=== PATIENT | female | born 1950 | race Two or more races ===

== ENCOUNTER 2016-08-22 09:37 | Inpatient (IN) | payer MEDICARE, OTHER ==
[~2016-08-22] VITALS: Ht 160 cm; Wt 79.5 kg
[2016-08-22 11:59] LABS: Basophils # (auto) 0 uL; Basophils % (auto) 0.1 % (0.0-2.0); Eosinophils # (auto) 0 uL; Eosinophils % (auto) 0.2 % (0.0-7.0); Hematocrit 44.9 % (36.0-46.0); Hemoglobin 14.4 g/dL (12.2-16.2); Lymphocytes # (auto) 1.1 uL; Lymphocytes % (auto) 7.2 % (10.0-50.0); Mean Corpuscular Hgb Conc. 32.2 g/dL (32.0-36.0); Mean Corpuscular Volume 87.1 fL (80.0-100.0); Mean Platelet Volume 7.9 fL (7.4-10.4); Monocytes # (auto) 0.4 uL; Monocytes % (auto) 2.3 % (0.0-12.0); Neutrophils # (auto) 14.1 uL; Neutrophils % (auto) 90.2 % (37.0-80.0); Platelet Count (auto) 297 10^3/uL (140-450); Red Cell Distribution Width 14.5 % (11.6-16.0); SUSPECT VIEW TRANSMISSION; White Blood Cell 15.7 10^3/uL (4.4-10.8)
[2016-08-22 12:19] LABS: BUN/Creatinine Ratio 16.7; Calcium 8.4 mg/dL (8.5-10.1)
[2016-08-22 14:48] LABS: Potassium 3.7 mmol/L (3.5-5.1)
[2016-08-22] MEDS ORDERED: metroNIDAZOLE 500MG/100ML 100 ML IV ONE (16:30)
[2016-08-22] MEDS ORDERED: ONDANSETRON HCL 4 MG/2 ML VIAL IV ONE (16:30)
[2016-08-22] MEDS ORDERED: SODIUM CHLORIDE 0.9% 1,000 ML IV ONE (16:30)
[2016-08-22] MEDS ORDERED: MORPHINE SULFATE 4 MG/ML SYRG IV ONE (16:30)
[2016-08-22] MEDS ORDERED: PANTOPRAZOLE SODIUM 40 MG/10 ML VIAL IV ONE (16:30)
[2016-08-22] MEDS: PIPERACILLIN-TAZOB 3.375GM 100 ML IV ONE ×2 (16:44→18:40)
[2016-08-22] MEDS: SODIUM CHLORIDE 0.9% 1,000 ML IV ONE ×2 (16:44→19:00)
[2016-08-22 16:56] LABS: BUN/Creatinine Ratio 17.4; Bilirubin, Total 1.6 mg/dL (0.2-1.0); Calcium 8.4 mg/dL (8.5-10.1); Total Protein 7.4 g/dL (6.4-8.2)
[2016-08-22 17:41] LABS: Albumin 2.5 g/dL (3.4-5.0)
[2016-08-22] MEDS ORDERED: cefTRIAXone 1GM/50ML D5W 50 ML IV ONE (18:00)
[2016-08-22] MEDS ORDERED: IOHEXOL 350 MG/ML 100ML IJ ONE (18:13)
[2016-08-22 18:19] LABS: Amylase 44 U/L (25-115)
[2016-08-22 18:48] LABS: INR 1.03 (0.9-1.15); Partial Thromboplastin Time 24.1 sec (22.64-33.71); Prothrombin Time 10.6 sec (9.37-12.3)
[2016-08-22 18:50] LABS: Urine Blood TRACE /uL (Negative); Urine Color Yellow (Yellow); Urine Glucose Normal (Normal); Urine Ketone TRACE (Negative); Urine Nitrite Negative (Negative); Urine RBC 20 /hpf (0 - 4); Urine Squamous Epithelial Cell FEW /hpf (<5)
[2016-08-22 18:55] LABS: Urine Bilirubin Negative (Negative)
[2016-08-22] MEDS ORDERED: DEXTROSE (50%) 50ML SYRG IV PRN (19:15)
[2016-08-22] MEDS ORDERED: LORazepam 2MG/ML-1ML VIAL IV PRN (19:15)
[2016-08-22] MEDS ORDERED: LEVOFLOXACIN 500MG 100 ML IV ONE (19:15)
[2016-08-22] MEDS ORDERED: NITROGLYCERIN 0.4 MG SL TAB SL PRN (19:15)
[2016-08-22] MEDS ORDERED: MORPHINE SULF INJ 2 MG/ML SYRINGE 1ML IV PRN (19:15)
[2016-08-22] MEDS ORDERED: PROMETHAZINE HCL 25 MG/ML 1ML IV PRN (19:15)
[2016-08-22] MEDS ORDERED: ALBUTEROL SULF 2.5 MG/0.5ML(0.5%) NEB SOLN NEB PRN (19:15)
[2016-08-22] MEDS ORDERED: PIPERACILLIN-TAZOB 3.375GM 100 ML IV ONE (19:15)
[2016-08-22] MEDS ORDERED: VANCOMYCIN PER PHARMACY 0 MG IV SCH (19:15)
[2016-08-22] MEDS ORDERED: VANCOMYCIN 1GM/250ML D5W 250 ML IV ONE (19:15)
[2016-08-22] MEDS ORDERED: ENOXAPARIN SOD 40 MG/0.4 ML SYRINGE SC SCH (19:15)
[2016-08-22] MEDS: SODIUM CHLORIDE 0.9% 1,000 ML IV SCH (20:00)
[2016-08-22] MEDS ORDERED: ENOXAPARIN SOD 80 MG/0.8ML SYRINGE SC ONE (20:30)
[2016-08-22] MEDS: VANCOMYCIN 1GM/250ML D5W 250 ML IV SCH (21:54)
[2016-08-22] MEDS: MORPHINE SULF INJ 2 MG/ML SYRINGE 1ML IV PRN (22:07)
[2016-08-22] MEDS: metroNIDAZOLE 500MG/100ML 100 ML IV SCH (22:24)
[2016-08-22] MEDS: PIPERACILLIN-TAZOB 3.375GM 100 ML IV SCH (23:15)
[2016-08-23] MEDS: ALBUTEROL SULF 2.5 MG/0.5ML(0.5%) NEB SOLN NEB SCH ×4 (00:30→18:24)
[2016-08-23] MEDS ORDERED: InsuLIN REG 1unit/0.01ml Soln (100units/ml) ONE (01:01)
[2016-08-23 01:43] VITALS: BP 141/74
[2016-08-23] MEDS: SODIUM CHLORIDE 0.9% 1,000 ML IV SCH ×3 (03:10→19:00)
[2016-08-23] MEDS: metroNIDAZOLE 500MG/100ML 100 ML IV SCH ×4 (04:00→21:27)
[2016-08-23] MEDS: PIPERACILLIN-TAZOB 3.375GM 100 ML IV SCH ×4 (05:20→23:00)
[2016-08-23] MEDS: InsuLIN REG 1unit/0.01ml Soln (100units/ml) SC SCH ×4 (06:00→17:51)
[2016-08-23] MEDS: ACCU-CHEK COMFORT CURVE STRIP VI SCH ×4 (06:08→17:48)
[2016-08-23 07:54] LABS: DEFINITIVE VIEW TRANSMISSION; Hematocrit 40.5 % (36.0-46.0); Mean Corpuscular Hemoglobin 27.9 pg (28.0-32.0); Mean Corpuscular Hgb Conc. 32.1 g/dL (32.0-36.0); Mean Corpuscular Volume 86.9 fL (80.0-100.0); Mean Platelet Volume 8.1 fL (7.4-10.4); Platelet Count (auto) 304 10^3/uL (140-450); Red Cell Distribution Width 14.6 % (11.6-16.0); SUSPECT VIEW TRANSMISSION; White Blood Cell 24.8 10^3/uL (4.4-10.8)
[2016-08-23 07:56] LABS: Metamyelocytes % 0; Myelocytes % 0; Promyelocytes % 0; Reactive Lymphocytes 0
[2016-08-23] MEDS: VANCOMYCIN 1GM/250ML D5W 250 ML IV SCH ×2 (08:11→20:00)
[2016-08-23 08:18] LABS: Albumin 2.1 g/dL (3.4-5.0); BUN/Creatinine Ratio 13.4; Bilirubin, Total 1.2 mg/dL (0.2-1.0); Calcium 7.3 mg/dL (8.5-10.1); Potassium 3.4 mmol/L (3.5-5.1); Total Protein 6.7 g/dL (6.4-8.2)
[2016-08-23 08:37] LABS: Platelet Estimate Adequate
[2016-08-23] MEDS ORDERED: LEVOFLOXACIN 500MG 100 ML IV SCH (09:00)
[2016-08-23 15:50] LABS: Hematocrit 38.1 % (36.0-46.0); Hemoglobin 12.5 g/dL (12.2-16.2); Mean Corpuscular Hemoglobin 28.4 pg (28.0-32.0); Mean Corpuscular Hgb Conc. 32.7 g/dL (32.0-36.0); Mean Corpuscular Volume 86.7 fL (80.0-100.0); Mean Platelet Volume 7.8 fL (7.4-10.4); Platelet Count (auto) 299 10^3/uL (140-450); Red Cell Distribution Width 14.5 % (11.6-16.0); SUSPECT VIEW TRANSMISSION; White Blood Cell 26.1 10^3/uL (4.4-10.8)
[2016-08-23 15:55] LABS: Metamyelocytes % 0; Myelocytes % 0; Promyelocytes % 0; Reactive Lymphocytes 0
[2016-08-23 16:01] LABS: INR 1.11 (0.9-1.15); Partial Thromboplastin Time 30.6 sec (22.64-33.71); Prothrombin Time 11.4 sec (9.37-12.3)
[2016-08-23 16:05] VITALS: BP 145/82
[2016-08-23] MEDS ORDERED: POTASSIUM CHLORIDE 40 MEQ, LIDOCAINE 1% (LOCAL ANESTH.) 4 ML in SODIUM CHL 0.9% 250 ML IV ONE (16:30)
[2016-08-23 16:34] VITALS: BP 145/82
[2016-08-23 16:44] LABS: Platelet Estimate Adequate
[2016-08-23] MEDS ORDERED: AML5T PO (18:14)
[2016-08-23] MEDS ORDERED: SIMV-8 PO (18:14)
[2016-08-23] MEDS ORDERED: BECL0.07 IN (18:14)
[2016-08-23] MEDS ORDERED: ASPI-231 PO (18:14)
[2016-08-23] MEDS ORDERED: MORPHINE SULF INJ 2 MG/ML SYRINGE 1ML ONE (19:51)
[2016-08-23 20:00] VITALS: BP 148/72
[2016-08-23] MEDS: MORPHINE SULF INJ 2 MG/ML SYRINGE 1ML IV PRN (20:00)
[2016-08-24] VITALS (29 sets, daily range): BP systolic 85–171; BP diastolic 41–74
[2016-08-24] MEDS: ALBUTEROL SULF 2.5 MG/0.5ML(0.5%) NEB SOLN NEB SCH ×4 (00:02→18:54)
[2016-08-24] MEDS: ACCU-CHEK COMFORT CURVE STRIP VI SCH ×3 (00:02→18:00)
[2016-08-24] MEDS: SODIUM CHLORIDE 0.9% 1,000 ML IV SCH ×4 (01:51→23:12)
[2016-08-24] MEDS: metroNIDAZOLE 500MG/100ML 100 ML IV SCH ×3 (03:49→21:12)
[2016-08-24] MEDS: PIPERACILLIN-TAZOB 3.375GM 100 ML IV SCH ×3 (04:55→22:05)
[2016-08-24] MEDS: InsuLIN REG 1unit/0.01ml Soln (100units/ml) SC SCH ×3 (06:00→18:38)
[2016-08-24 06:21] LABS: Hematocrit 37.5 % (36.0-46.0); Hemoglobin 12.2 g/dL (12.2-16.2); Mean Corpuscular Hemoglobin 28.2 pg (28.0-32.0); Mean Corpuscular Hgb Conc. 32.6 g/dL (32.0-36.0); Mean Corpuscular Volume 86.6 fL (80.0-100.0); Mean Platelet Volume 7.9 fL (7.4-10.4); Platelet Count (auto) 297 10^3/uL (140-450); Red Cell Distribution Width 14.6 % (11.6-16.0); SUSPECT VIEW TRANSMISSION; White Blood Cell 27.9 10^3/uL (4.4-10.8)
[2016-08-24 06:32] LABS: INR 1.13 (0.9-1.15); Prothrombin Time 11.6 sec (9.37-12.3)
[2016-08-24 06:40] LABS: Metamyelocytes % 0; Myelocytes % 0; Promyelocytes % 0; Reactive Lymphocytes 0
[2016-08-24 06:45] LABS: BUN/Creatinine Ratio 15.4; Calcium 7.3 mg/dL (8.5-10.1); Magnesium 2.6 mg/dL (1.6-2.6); Potassium 3.4 mmol/L (3.5-5.1); Total Protein 6.1 g/dL (6.4-8.2)
[2016-08-24 07:00] LABS: Bilirubin, Total 1.1 mg/dL (0.2-1.0)
[2016-08-24] MEDS ORDERED: fentaNYL CITRATE 100 MCG/2 ML VL ONE ×2 (07:04→08:51)
[2016-08-24] MEDS ORDERED: diphenhdrAMINE HCL 50 MG/1 ML VL ONE (07:04)
[2016-08-24] MEDS ORDERED: SODIUM CHLORIDE LOCK 0 ML ONE (07:04)
[2016-08-24] MEDS ORDERED: MIDAZOLAM HCL 5 MG/ML-1ML VIAL ONE (07:04)
[2016-08-24] MEDS ORDERED: LIDOCAINE VISCOUS 2% 15ML UD ONE (07:04)
[2016-08-24] MEDS ORDERED: BUPIVACAINE W/ EPINEPH 0.25% INJ 50ML MDV ONE (07:21)
[2016-08-24] MEDS ORDERED: ceFAZolin 1GM VL ONE (07:21)
[2016-08-24] MEDS ORDERED: NEOMYCIN-BACITRACIN-POLYM 15GM TOP OINT TOP ONE (07:21)
[2016-08-24] MEDS ORDERED: BUPIVACAINE 0.25% INJ 50ML VIAL ONE (07:22)
[2016-08-24] MEDS ORDERED: VANCOMYCIN 1,250 MG in D5W 5% 250 ML IV SCH ×2 (08:00→20:00)
[2016-08-24] MEDS ORDERED: ceFAZolin 1GM/50ML D5W 50 ML IV ONE (08:11)
[2016-08-24] MEDS ORDERED: HYDROmorphone HCL 2 MG/ML VL ONE ×2 (08:51→10:58)
[2016-08-24] MEDS ORDERED: MIDAZOLAM HCL 1MG/1ML-2 ML VIAL ONE ×2 (08:51→11:04)
[2016-08-24] MEDS ORDERED: fentaNYL CITRATE 5 ML ONE (08:53)
[2016-08-24] MEDS ORDERED: ETOMIDATE (2MG/ML) 20ML VIAL IV ONE (08:53)
[2016-08-24] MEDS ORDERED: SUCCINYLCHOLINE CHLORIDE 20 MG/ML 10ML VIAL IV ONE (09:26)
[2016-08-24] MEDS ORDERED: PHENYLEPHRINE HCL 10 MG/ML VL IV ONE (09:26)
[2016-08-24 10:14] LABS: Platelet Estimate Adequate
[2016-08-24] MEDS ORDERED: NITROGLYCERIN 0.4 MG SL TAB SL PRN (11:30)
[2016-08-24] MEDS ORDERED: HYDROmorphone HCL 2 MG/ML VL IV PRN (11:30)
[2016-08-24] MEDS ORDERED: PROMETHAZINE HCL 25 MG/ML 1ML IV PRN (11:30)
[2016-08-24] MEDS ORDERED: MIDAZOLAM HCL 1MG/1ML-2 ML VIAL IV PRN (11:30)
[2016-08-24] MEDS ORDERED: ONDANSETRON HCL 4 MG/2 ML VIAL IV ONE (11:30)
[2016-08-24] MEDS ORDERED: LABETALOL HCL 5 MG/ML 4ML SYRINGE IV PRN (11:30)
[2016-08-24] MEDS ORDERED: ePHEDrine SULFATE 50 MG/ML AMP IV PRN (11:30)
[2016-08-24] MEDS ORDERED: ACCU-CHEK COMFORT CURVE STRIP VI ONE (11:30)
[2016-08-24] MEDS ORDERED: ALBUTEROL SULF 2.5 MG/0.5ML(0.5%) NEB SOLN NEB PRN (11:30)
[2016-08-24] MEDS ORDERED: VANCOMYCIN PER PHARMACY 0 MG IV SCH (11:30)
[2016-08-24] MEDS ORDERED: DEXTROSE (50%) 50ML SYRG IV PRN (11:30)
[2016-08-24] MEDS ORDERED: MORPHINE SULF INJ 2 MG/ML SYRINGE 1ML IV PRN ×2 (11:30)
[2016-08-24] MEDS ORDERED: LORazepam 2MG/ML-1ML VIAL IV PRN (11:30)
[2016-08-24] MEDS ORDERED: InsuLIN REG 1unit/0.01ml Soln (100units/ml) SC SCH (12:00)
[2016-08-24] MEDS ORDERED: ACCU-CHEK COMFORT CURVE STRIP VI SCH (12:00)
[2016-08-24] MEDS: MORPHINE SULF INJ 2 MG/ML SYRINGE 1ML IV PRN ×2 (12:55→21:14)
[2016-08-24] MEDS ORDERED: MIDAZOLAM HCL 1MG/1ML-2 ML VIAL IV ONE (13:00)
[2016-08-24] MEDS ORDERED: PROPOFOL 100 ML IV ONE (13:04)
[2016-08-24] MEDS: PROPOFOL 100 ML IV SCH (13:33)
[2016-08-24] MEDS ORDERED: TPN PER PHARMACY 0 ML IV SCH (14:00)
[2016-08-24] MEDS: VANCOMYCIN 1,250 MG in D5W 5% 250 ML IV SCH (14:11)
[2016-08-24] MEDS ORDERED: DEXTROSE (50%) 50ML SYRG IV SCH (15:15)
[2016-08-24] MEDS ORDERED: POTASSIUM CHL 20MEQ/100ML 100 ML IV ONE (17:00)
[2016-08-24] MEDS ORDERED: LIDOCAINE 1% HCL (LOCAL ANESTH.) INJ 20ML MDV ID ONE (18:30)
[2016-08-24] MEDS ORDERED: CLINIMIX PER PHARMACY IV NR ×5 (20:00)
[2016-08-24] MEDS: SODIUM CHLOR 0.9% PF (SALINE LOCK) 10ML VIAL IV SCH (22:05)
[2016-08-25] VITALS (75 sets, daily range): BP systolic 88–158; BP diastolic 43–73
[2016-08-25] MEDS: PROPOFOL 100 ML IV SCH ×3 (00:17→11:04)
[2016-08-25] MEDS: ALBUTEROL SULF 2.5 MG/0.5ML(0.5%) NEB SOLN NEB SCH ×4 (01:10→19:17)
[2016-08-25] MEDS: VANCOMYCIN 1,250 MG in D5W 5% 250 ML IV SCH ×2 (02:11→14:00)
[2016-08-25 04:04] LABS: DEFINITIVE VIEW TRANSMISSION; Hematocrit 33.9 % (36.0-46.0); Hemoglobin 10.9 g/dL (12.2-16.2); Mean Corpuscular Hemoglobin 28.4 pg (28.0-32.0); Mean Corpuscular Hgb Conc. 32.2 g/dL (32.0-36.0); Mean Platelet Volume 7.7 fL (7.4-10.4); Platelet Count (auto) 305 10^3/uL (140-450); Red Cell Distribution Width 15.1 % (11.6-16.0); SUSPECT VIEW TRANSMISSION
[2016-08-25] MEDS: metroNIDAZOLE 500MG/100ML 100 ML IV SCH ×4 (04:10→21:45)
[2016-08-25] MEDS: PIPERACILLIN-TAZOB 3.375GM 100 ML IV SCH ×2 (04:11→11:03)
[2016-08-25 04:46] LABS: Albumin 1.4 g/dL (3.4-5.0); BUN/Creatinine Ratio 7.8; Bilirubin, Total 1.2 mg/dL (0.2-1.0); Magnesium 2.2 mg/dL (1.6-2.6); Phosphorus 3.9 mg/dL (2.6-4.90); Total Protein 4.5 g/dL (6.4-8.2)
[2016-08-25 04:49] LABS: Promyelocytes % 0; Reactive Lymphocytes 0
[2016-08-25 05:02] LABS: Calcium 5.9 mg/dL (8.5-10.1)
[2016-08-25] MEDS: InsuLIN REG 1unit/0.01ml Soln (100units/ml) SC SCH ×5 (05:51→23:47)
[2016-08-25] MEDS: ACCU-CHEK COMFORT CURVE STRIP VI SCH ×5 (05:54→23:45)
[2016-08-25 06:20] LABS: Metamyelocytes % 3; Myelocytes % 1
[2016-08-25 06:22] LABS: Anisocytosis Slight; Platelet Estimate Adequate
[2016-08-25] MEDS: SODIUM CHLORIDE 0.9% 1,000 ML IV SCH ×2 (07:30→18:17)
[2016-08-25] MEDS: SODIUM CHLOR 0.9% PF (SALINE LOCK) 10ML VIAL IV SCH ×2 (09:35→21:45)
[2016-08-25] MEDS ORDERED: CALCIUM GLUC 4.65 MEQ/10ML 4.65 MEQ in NS 0.9% 50 ML IV ONE (10:00)
[2016-08-25] MEDS ORDERED: MIDAZOLAM DRIP 100 mg/100mL NS 100 ML IV SCH (12:00)
[2016-08-25 13:15] LABS: DEFINITIVE VIEW TRANSMISSION; SUSPECT VIEW TRANSMISSION
[2016-08-25 13:17] LABS: Mean Platelet Volume 7.7 fL (7.4-10.4)
[2016-08-25 13:19] LABS: Hematocrit 33.4 % (36.0-46.0); Hemoglobin 10.7 g/dL (12.2-16.2); Mean Corpuscular Hemoglobin 28.3 pg (28.0-32.0); Mean Corpuscular Hgb Conc. 32.2 g/dL (32.0-36.0); Mean Corpuscular Volume 87.9 fL (80.0-100.0); Platelet Count (auto) 288 10^3/uL (140-450); Red Cell Distribution Width 14.8 % (11.6-16.0)
[2016-08-25 13:48] LABS: Albumin 1.3 g/dL (3.4-5.0); BUN/Creatinine Ratio 8.1; Calcium 6.7 mg/dL (8.5-10.1); Potassium 3.9 mmol/L (3.5-5.1); Total Protein 4.7 g/dL (6.4-8.2)
[2016-08-25] MEDS ORDERED: cefTAZidime 2 GM in D5W 5% 100 ML IV SCH (14:00)
[2016-08-25 14:17] LABS: White Blood Cell 37.7 10^3/uL (4.4-10.8)
[2016-08-25 14:18] LABS: Promyelocytes % 0; Reactive Lymphocytes 0
[2016-08-25] MEDS: HYDROmorphone HCL 2 MG/ML VL IV PRN ×2 (16:57→21:45)
[2016-08-25 18:34] LABS: Metamyelocytes % 4; Myelocytes % 3
[2016-08-25 18:35] LABS: Platelet Estimate Adequate
[2016-08-25 18:36] LABS: Anisocytosis Slight; Burr Cells MODERATE
[2016-08-25] MEDS ORDERED: TPN PER PHARMACY IV NR ×8 (20:00)
[2016-08-25] MEDS ORDERED: LINEZOLID 600MG/300ML 300 ML IV SCH (22:00)
[2016-08-26] VITALS (105 sets, daily range): BP systolic 122–173; BP diastolic 50–88
[2016-08-26] MEDS: ALBUTEROL SULF 2.5 MG/0.5ML(0.5%) NEB SOLN NEB SCH ×4 (00:36→18:16)
[2016-08-26] MEDS: HYDROmorphone HCL 2 MG/ML VL IV PRN ×4 (02:42→19:50)
[2016-08-26] MEDS: metroNIDAZOLE 500MG/100ML 100 ML IV SCH ×4 (03:45→21:59)
[2016-08-26 05:21] LABS: Albumin 1.3 g/dL (3.4-5.0); BUN/Creatinine Ratio 8.1; Bilirubin, Total 1.1 mg/dL (0.2-1.0); Calcium 6.4 mg/dL (8.5-10.1); Magnesium 2.3 mg/dL (1.6-2.6); Phosphorus 4.6 mg/dL (2.6-4.90); Potassium 3.8 mmol/L (3.5-5.1); Total Protein 4.9 g/dL (6.4-8.2)
[2016-08-26 05:51] LABS: DEFINITIVE VIEW TRANSMISSION; Hematocrit 30.5 % (36.0-46.0); Hemoglobin 9.9 g/dL (12.2-16.2); Mean Corpuscular Hemoglobin 28.4 pg (28.0-32.0); Mean Corpuscular Hgb Conc. 32.3 g/dL (32.0-36.0); Mean Corpuscular Volume 87.9 fL (80.0-100.0); Mean Platelet Volume 7.9 fL (7.4-10.4); Platelet Count (auto) 290 10^3/uL (140-450); SUSPECT VIEW TRANSMISSION
[2016-08-26 05:54] LABS: White Blood Cell 38.5 10^3/uL (4.4-10.8)
[2016-08-26 05:55] LABS: Myelocytes % 0; Promyelocytes % 0; Reactive Lymphocytes 0
[2016-08-26] MEDS: ACCU-CHEK COMFORT CURVE STRIP VI SCH ×3 (06:02→18:05)
[2016-08-26] MEDS: InsuLIN REG 1unit/0.01ml Soln (100units/ml) SC SCH ×3 (06:18→18:00)
[2016-08-26 06:38] LABS: Metamyelocytes % 1
[2016-08-26 06:39] LABS: Anisocytosis Slight; Platelet Estimate Adequate
[2016-08-26 06:40] LABS: Burr Cells MODERATE
[2016-08-26] MEDS: SODIUM CHLORIDE 0.9% 1,000 ML IV SCH ×2 (10:00→16:28)
[2016-08-26] MEDS: cefTAZidime 2 GM in D5W 5% 100 ML IV SCH (10:20)
[2016-08-26] MEDS: SODIUM CHLOR 0.9% PF (SALINE LOCK) 10ML VIAL IV SCH ×2 (10:20→21:59)
[2016-08-26] MEDS: PROPOFOL 100 ML IV SCH (13:15)
[2016-08-26] MEDS: MIDAZOLAM DRIP 100 mg/100mL NS 100 ML IV SCH (14:02)
[2016-08-26] MEDS ORDERED: BUMETANIDE (0.25 MG/ML) INJ 10ML IV ONE (16:45)
[2016-08-26] MEDS ORDERED: ALBUMIN 25% 100 ML IV ONE (17:00)
[2016-08-26] MEDS ORDERED: TPN PER PHARMACY IV NR ×10 (20:00)
[2016-08-27] VITALS (99 sets, daily range): BP systolic 132–191; BP diastolic 60–107
[2016-08-27] MEDS: ALBUTEROL SULF 2.5 MG/0.5ML(0.5%) NEB SOLN NEB SCH ×4 (00:22→18:34)
[2016-08-27] MEDS: HYDROmorphone HCL 2 MG/ML VL IV PRN ×4 (00:38→23:33)
[2016-08-27] MEDS: SODIUM CHLORIDE 0.9% 1,000 ML IV SCH ×6 (02:00→23:45)
[2016-08-27] MEDS ORDERED: hydrALAZINE HCL 20 MG/ML VL IV ONE (03:00)
[2016-08-27] MEDS: metroNIDAZOLE 500MG/100ML 100 ML IV SCH ×4 (03:33→22:44)
[2016-08-27 03:53] LABS: DEFINITIVE VIEW TRANSMISSION; Hematocrit 29.1 % (36.0-46.0); Hemoglobin 9.5 g/dL (12.2-16.2); Mean Corpuscular Hemoglobin 28.5 pg (28.0-32.0); Mean Corpuscular Hgb Conc. 32.6 g/dL (32.0-36.0); Mean Corpuscular Volume 87.4 fL (80.0-100.0); Mean Platelet Volume 7.6 fL (7.4-10.4); Platelet Count (auto) 315 10^3/uL (140-450); Red Cell Distribution Width 14.7 % (11.6-16.0); SUSPECT VIEW TRANSMISSION
[2016-08-27 04:10] LABS: Albumin 1.8 g/dL (3.4-5.0); BUN/Creatinine Ratio 8.3; Bilirubin, Total 0.9 mg/dL (0.2-1.0); Calcium 6.4 mg/dL (8.5-10.1); Magnesium 2.4 mg/dL (1.6-2.6); Potassium 4.2 mmol/L (3.5-5.1); Total Protein 5.5 g/dL (6.4-8.2)
[2016-08-27 04:14] LABS: White Blood Cell 32.8 10^3/uL (4.4-10.8)
[2016-08-27 04:15] LABS: Myelocytes % 0; Promyelocytes % 0; Reactive Lymphocytes 0
[2016-08-27 05:07] LABS: Metamyelocytes % 3
[2016-08-27 05:08] LABS: Anisocytosis Slight; Hypersegmented Neutrophils Present; Platelet Estimate Adequate
[2016-08-27] MEDS: ACCU-CHEK COMFORT CURVE STRIP VI SCH ×4 (05:55→17:48)
[2016-08-27] MEDS: InsuLIN REG 1unit/0.01ml Soln (100units/ml) SC SCH ×4 (05:55→17:50)
[2016-08-27] MEDS: MIDAZOLAM DRIP 100 mg/100mL NS 100 ML IV SCH ×3 (09:44→22:43)
[2016-08-27] MEDS: cefTAZidime 2 GM in D5W 5% 100 ML IV SCH (09:44)
[2016-08-27] MEDS: SODIUM CHLOR 0.9% PF (SALINE LOCK) 10ML VIAL IV SCH ×2 (09:45→22:00)
[2016-08-27] MEDS ORDERED: BUMETANIDE (0.25 MG/ML) INJ 10ML IV ONE (11:30)
[2016-08-27] MEDS: BUMETANIDE INJECTION 12.5 MG in GIVE UN-DILUTED 0 ML IV SCH (11:30)
[2016-08-27 12:17] LABS: Temperature: 21.6 C (20.0-25.0)
[2016-08-27] MEDS: ALBUMIN 25% 100 ML IV SCH ×2 (12:52→23:01)
[2016-08-27] MEDS ORDERED: SODIUM CHLORIDE 0.9% 1,000 ML IV ONE ×2 (15:45)
[2016-08-27] MEDS: PROPOFOL 100 ML IV SCH ×2 (16:45→22:47)
[2016-08-27] MEDS ORDERED: TPN PER PHARMACY IV NR ×9 (20:00)
[2016-08-28] VITALS (105 sets, daily range): BP systolic 109–207; BP diastolic 46–100
[2016-08-28] MEDS: ACCU-CHEK COMFORT CURVE STRIP VI SCH ×4 (00:03→17:31)
[2016-08-28] MEDS: InsuLIN REG 1unit/0.01ml Soln (100units/ml) SC SCH ×4 (00:10→17:58)
[2016-08-28] MEDS: ALBUTEROL SULF 2.5 MG/0.5ML(0.5%) NEB SOLN NEB SCH ×5 (00:39→23:59)
[2016-08-28] MEDS: BUMETANIDE INJECTION 12.5 MG in GIVE UN-DILUTED 0 ML IV SCH (02:54)
[2016-08-28] MEDS: HYDROmorphone HCL 2 MG/ML VL IV PRN ×6 (04:08→23:57)
[2016-08-28] MEDS: metroNIDAZOLE 500MG/100ML 100 ML IV SCH ×4 (04:12→22:09)
[2016-08-28 04:20] LABS: DEFINITIVE VIEW TRANSMISSION; Hemoglobin 8.7 g/dL (12.2-16.2); Mean Corpuscular Hemoglobin 28.8 pg (28.0-32.0); Mean Corpuscular Hgb Conc. 33.4 g/dL (32.0-36.0); Mean Corpuscular Volume 86.3 fL (80.0-100.0); Mean Platelet Volume 7.6 fL (7.4-10.4); Platelet Count (auto) 317 10^3/uL (140-450); Red Cell Distribution Width 14.9 % (11.6-16.0); SUSPECT VIEW TRANSMISSION; White Blood Cell 27.4 10^3/uL (4.4-10.8)
[2016-08-28 04:23] LABS: Promyelocytes % 0; Reactive Lymphocytes 0
[2016-08-28 04:41] LABS: Albumin 2.3 g/dL (3.4-5.0); BUN/Creatinine Ratio 8.9; Calcium 6.7 mg/dL (8.5-10.1); Potassium 4.4 mmol/L (3.5-5.1)
[2016-08-28 04:43] LABS: Bilirubin, Total 0.7 mg/dL (0.2-1.0); Total Protein 5.8 g/dL (6.4-8.2)
[2016-08-28 05:05] LABS: Hypersegmented Neutrophils Present; Metamyelocytes % 3; Myelocytes % 6; Platelet Estimate Adequate
[2016-08-28] MEDS: ALBUMIN 25% 100 ML IV SCH ×3 (06:22→22:08)
[2016-08-28] MEDS: PROPOFOL 100 ML IV SCH ×2 (07:37→17:31)
[2016-08-28 08:39] LABS: Magnesium 2.3 mg/dL (1.6-2.6)
[2016-08-28] MEDS: amLODIPine BESYLATE 5 MG TAB GT SCH (09:21)
[2016-08-28] MEDS: SODIUM CHLOR 0.9% PF (SALINE LOCK) 10ML VIAL IV SCH ×2 (10:01→22:09)
[2016-08-28] MEDS ORDERED: CALCIUM GLUC 4.65 MEQ/10ML 4.65 MEQ in NS 0.9% 50 ML IV ONE (10:30)
[2016-08-28] MEDS: SODIUM CHLORIDE 0.9% 1,000 ML IV SCH ×3 (10:47→23:45)
[2016-08-28] MEDS ORDERED: METOPROLOL TARTRATE 1MG/1ML-5ML VIAL IV ONE (14:15)
[2016-08-28] MEDS ORDERED: FLUMAZENIL 0.1 MG/ML INJ 10ML MDV IV ONE (14:53)
[2016-08-28] MEDS ORDERED: NALOXONE HCL 0.4 MG/ML VIAL ONE (14:53)
[2016-08-28] MEDS ORDERED: SODIUM CHLORIDE LOCK 0 ML ONE (14:54)
[2016-08-28] MEDS ORDERED: fentaNYL CITRATE 100 MCG/2 ML VL ONE (14:54)
[2016-08-28] MEDS ORDERED: BENZOCAINE (DENTAL) 20 % SPRAY 60ML MT ONE (14:54)
[2016-08-28] MEDS ORDERED: diphenhdrAMINE HCL 50 MG/1 ML VL ONE (14:54)
[2016-08-28] MEDS ORDERED: MIDAZOLAM HCL 5 MG/ML-1ML VIAL ONE (14:54)
[2016-08-28] MEDS ORDERED: EPINEPHrine HCL 1 MG/10 ML SYRG ONE (14:54)
[2016-08-28] MEDS ORDERED: SODIUM CHL 0.9% 1000 ML BAG XX ONE (16:00)
[2016-08-28 16:13] LABS: Partial Thromboplastin Time 31.5 sec (22.64-33.71); Prothrombin Time 12.2 sec (9.37-12.3)
[2016-08-28 16:32] LABS: INR 1.18 (0.9-1.15)
[2016-08-28] MEDS ORDERED: TPN PER PHARMACY IV NR ×8 (20:00)
[2016-08-28] MEDS: PANTOPRAZOLE SODIUM 40 MG/10 ML VIAL IV SCH (22:09)
[2016-08-29] VITALS (107 sets, daily range): BP systolic 98–191; BP diastolic 33–103
[2016-08-29] MEDS: ACCU-CHEK COMFORT CURVE STRIP VI SCH ×4 (00:01→18:29)
[2016-08-29] MEDS: InsuLIN REG 1unit/0.01ml Soln (100units/ml) SC SCH ×4 (00:11→18:00)
[2016-08-29] MEDS: PROPOFOL 100 ML IV SCH (00:11)
[2016-08-29 00:21] LABS: Potassium 4.9 mmol/L (3.5-5.1)
[2016-08-29 00:24] LABS: Magnesium 2.3 mg/dL (1.6-2.6)
[2016-08-29] MEDS: metroNIDAZOLE 500MG/100ML 100 ML IV SCH ×4 (04:08→21:28)
[2016-08-29] MEDS: BUMETANIDE INJECTION 12.5 MG in GIVE UN-DILUTED 0 ML IV SCH ×2 (04:30→19:18)
[2016-08-29] MEDS: HYDROmorphone HCL 2 MG/ML VL IV PRN ×5 (05:40→21:28)
[2016-08-29] MEDS: ALBUMIN 25% 100 ML IV SCH (05:41)
[2016-08-29] MEDS: ALBUTEROL SULF 2.5 MG/0.5ML(0.5%) NEB SOLN NEB SCH ×3 (06:33→19:39)
[2016-08-29 07:16] LABS: BUN/Creatinine Ratio 9.6; Bilirubin, Total 0.9 mg/dL (0.2-1.0); Calcium 6.8 mg/dL (8.5-10.1); Magnesium 2.4 mg/dL (1.6-2.6); Phosphorus 5.6 mg/dL (2.6-4.90); Total Protein 6.5 g/dL (6.4-8.2)
[2016-08-29] MEDS: SODIUM CHLOR 0.9% PF (SALINE LOCK) 10ML VIAL IV SCH ×2 (09:12→21:28)
[2016-08-29] MEDS: CEFTRIAXONE SODIUM 2 GM in D5W 5% 50 ML IV SCH (09:12)
[2016-08-29] MEDS: amLODIPine BESYLATE 5 MG TAB GT SCH (09:13)
[2016-08-29] MEDS: SODIUM CHLORIDE 0.9% 1,000 ML IV SCH (09:13)
[2016-08-29] MEDS: PANTOPRAZOLE SODIUM 40 MG/10 ML VIAL IV SCH ×2 (09:16→21:28)
[2016-08-29 10:17] LABS: DEFINITIVE VIEW TRANSMISSION; Hematocrit 23.7 % (36.0-46.0); Hemoglobin 7.8 g/dL (12.2-16.2); Mean Corpuscular Hemoglobin 28.7 pg (28.0-32.0); Mean Corpuscular Hgb Conc. 32.7 g/dL (32.0-36.0); Mean Corpuscular Volume 87.7 fL (80.0-100.0); Mean Platelet Volume 7.9 fL (7.4-10.4); Platelet Count (auto) 355 10^3/uL (140-450); SUSPECT VIEW TRANSMISSION; White Blood Cell 24.2 10^3/uL (4.4-10.8)
[2016-08-29 10:37] LABS: Metamyelocytes % 0; Myelocytes % 0; Promyelocytes % 0; Reactive Lymphocytes 0
[2016-08-29] MEDS ORDERED: LIDOCAINE 1% HCL (LOCAL ANESTH.) INJ 20ML MDV ONE (10:48)
[2016-08-29] MEDS ORDERED: LIDOCAINE 2%HCL (LOCAL ANESTH.) INJ 20ML MDV ONE (10:48)
[2016-08-29] MEDS ORDERED: CALCIUM CHL 100MG/ML 1,000 MG in D5W 5% 100 ML IV ONE (12:30)
[2016-08-29] MEDS ORDERED: CALCIUM CHLOR(10%) 100MG/ML 10ML SYRINGE IV ONE (13:00)
[2016-08-29] MEDS: MIDAZOLAM DRIP 100 mg/100mL NS 100 ML IV SCH (13:08)
[2016-08-29 13:39] LABS: Burr Cells MODERATE; Platelet Estimate Adequate
[2016-08-29] MEDS ORDERED: TPN PER PHARMACY IV NR ×7 (20:00)
[2016-08-30] VITALS (94 sets, daily range): BP systolic 110–198; BP diastolic 35–92
[2016-08-30] MEDS: ACCU-CHEK COMFORT CURVE STRIP VI SCH ×4 (00:18→17:54)
[2016-08-30] MEDS: ALBUTEROL SULF 2.5 MG/0.5ML(0.5%) NEB SOLN NEB SCH ×4 (00:26→18:44)
[2016-08-30] MEDS: HYDROmorphone HCL 2 MG/ML VL IV PRN ×4 (01:01→15:33)
[2016-08-30] MEDS: SODIUM CHLORIDE 0.9% 1,000 ML IV SCH ×2 (01:02→09:36)
[2016-08-30] MEDS: PROPOFOL 100 ML IV SCH ×2 (03:30→09:32)
[2016-08-30] MEDS: metroNIDAZOLE 500MG/100ML 100 ML IV SCH ×4 (04:08→22:00)
[2016-08-30] MEDS: InsuLIN REG 1unit/0.01ml Soln (100units/ml) SC SCH ×4 (06:00→17:54)
[2016-08-30 07:51] LABS: Albumin 2.4 g/dL (3.4-5.0); BUN/Creatinine Ratio 9.7; Bilirubin, Total 0.6 mg/dL (0.2-1.0); Calcium 7.1 mg/dL (8.5-10.1); Phosphorus 4.2 mg/dL (2.6-4.90); Potassium 4.1 mmol/L (3.5-5.1); Total Protein 5.6 g/dL (6.4-8.2)
[2016-08-30 09:20] LABS: DEFINITIVE VIEW TRANSMISSION; Hematocrit 21.7 % (36.0-46.0); Hemoglobin 7.1 g/dL (12.2-16.2); Mean Corpuscular Hemoglobin 28.8 pg (28.0-32.0); Mean Corpuscular Hgb Conc. 32.8 g/dL (32.0-36.0); Mean Corpuscular Volume 87.8 fL (80.0-100.0); Mean Platelet Volume 7.9 fL (7.4-10.4); Platelet Count (auto) 329 10^3/uL (140-450); Red Cell Distribution Width 14.7 % (11.6-16.0); SUSPECT VIEW TRANSMISSION; White Blood Cell 20.3 10^3/uL (4.4-10.8)
[2016-08-30] MEDS: hydrALAZINE HCL 20 MG/ML VL IV PRN (09:29)
[2016-08-30 09:30] LABS: Promyelocytes % 0; Reactive Lymphocytes 0
[2016-08-30] MEDS: PANTOPRAZOLE SODIUM 40 MG/10 ML VIAL IV SCH ×2 (09:31→22:00)
[2016-08-30] MEDS: CEFTRIAXONE SODIUM 2 GM in D5W 5% 50 ML IV SCH (09:33)
[2016-08-30] MEDS: cloNIDine 0.2 MG/24 HR PAT TD SCH (09:33)
[2016-08-30] MEDS: SODIUM CHLOR 0.9% PF (SALINE LOCK) 10ML VIAL IV SCH ×2 (09:36→22:00)
[2016-08-30 09:43] LABS: Giant Platelets Few; Metamyelocytes % 2; Myelocytes % 2; Platelet Estimate Adequate; RBC Morphology Normal
[2016-08-30] MEDS: LINEZOLID 600MG/300ML 300 ML IV SCH (13:56)
[2016-08-30] MEDS ORDERED: FLUCONAZOLE 100MG/50ML 50 ML IV ONE (14:00)
[2016-08-30] MEDS ORDERED: HEPARIN 1,000 UNITS/ml 1ML VIAL ONE (15:17)
[2016-08-30] MEDS ORDERED: TPN PER PHARMACY IV NR ×8 (20:00)
[2016-08-31] VITALS (99 sets, daily range): BP systolic 125–185; BP diastolic 50–96
[2016-08-31] MEDS: ALBUTEROL SULF 2.5 MG/0.5ML(0.5%) NEB SOLN NEB SCH ×4 (00:25→18:49)
[2016-08-31] MEDS: LINEZOLID 600MG/300ML 300 ML IV SCH ×2 (01:57→12:46)
[2016-08-31] MEDS: ACCU-CHEK COMFORT CURVE STRIP VI SCH ×4 (01:57→17:44)
[2016-08-31] MEDS: InsuLIN REG 1unit/0.01ml Soln (100units/ml) SC SCH ×4 (01:57→17:44)
[2016-08-31] MEDS: HYDROmorphone HCL 2 MG/ML VL IV PRN ×3 (02:47→15:59)
[2016-08-31 03:44] LABS: Basophils # (auto) 0 uL; Basophils % (auto) 0.2 % (0.0-2.0); DEFINITIVE VIEW TRANSMISSION; Eosinophils # (auto) 0.5 uL; Eosinophils % (auto) 2.6 % (0.0-7.0); Hematocrit 26.5 % (36.0-46.0); Hemoglobin 8.8 g/dL (12.2-16.2); Lymphocytes % (auto) 5.1 % (10.0-50.0); Mean Corpuscular Hgb Conc. 33.1 g/dL (32.0-36.0); Mean Corpuscular Volume 87.5 fL (80.0-100.0); Mean Platelet Volume 7.5 fL (7.4-10.4); Monocytes # (auto) 1.9 uL; Monocytes % (auto) 9.4 % (0.0-12.0); Neutrophils # (auto) 16.8 uL; Neutrophils % (auto) 82.7 % (37.0-80.0); Platelet Count (auto) 305 10^3/uL (140-450); Red Cell Distribution Width 14.7 % (11.6-16.0); White Blood Cell 20.3 10^3/uL (4.4-10.8)
[2016-08-31 03:59] LABS: Albumin 2.2 g/dL (3.4-5.0); BUN/Creatinine Ratio 9.6; Bilirubin, Total 0.5 mg/dL (0.2-1.0); Calcium 6.7 mg/dL (8.5-10.1); Phosphorus 3.3 mg/dL (2.6-4.90); Potassium 3.9 mmol/L (3.5-5.1); Total Protein 5.7 g/dL (6.4-8.2)
[2016-08-31] MEDS: metroNIDAZOLE 500MG/100ML 100 ML IV SCH ×4 (04:00→22:23)
[2016-08-31] MEDS ORDERED: FLUCONAZOLE 100MG/50ML 50 ML IV SCH (10:00)
[2016-08-31] MEDS: PROPOFOL 100 ML IV SCH ×2 (10:08→15:39)
[2016-08-31] MEDS: CEFTRIAXONE SODIUM 2 GM in D5W 5% 50 ML IV SCH (10:09)
[2016-08-31] MEDS: PANTOPRAZOLE SODIUM 40 MG/10 ML VIAL IV SCH ×2 (10:09→22:23)
[2016-08-31] MEDS: SODIUM CHLOR 0.9% PF (SALINE LOCK) 10ML VIAL IV SCH ×2 (10:09→22:23)
[2016-08-31] MEDS: cloNIDine 0.2 MG/24 HR PAT TD SCH (10:10)
[2016-08-31] MEDS: SODIUM CHLORIDE 0.9% 1,000 ML IV SCH ×2 (11:00)
[2016-08-31] MEDS: hydrALAZINE HCL 20 MG/ML VL IV PRN (16:12)
[2016-08-31] MEDS ORDERED: TPN PER PHARMACY IV NR ×20 (20:00)
[2016-09-01] VITALS (76 sets, daily range): BP systolic 122–193; BP diastolic 51–96
[2016-09-01] MEDS: ACCU-CHEK COMFORT CURVE STRIP VI SCH ×4 (00:45→17:30)
[2016-09-01] MEDS: LINEZOLID 600MG/300ML 300 ML IV SCH ×2 (00:45→13:00)
[2016-09-01] MEDS: InsuLIN REG 1unit/0.01ml Soln (100units/ml) SC SCH ×4 (00:45→18:00)
[2016-09-01] MEDS: ALBUTEROL SULF 2.5 MG/0.5ML(0.5%) NEB SOLN NEB SCH ×4 (00:47→19:09)
[2016-09-01] MEDS: metroNIDAZOLE 500MG/100ML 100 ML IV SCH ×4 (04:00→22:00)
[2016-09-01 04:44] LABS: Basophils # (auto) 0 uL; Basophils % (auto) 0.1 % (0.0-2.0); Eosinophils # (auto) 0.5 uL; Eosinophils % (auto) 2.6 % (0.0-7.0); Hematocrit 26.3 % (36.0-46.0); Hemoglobin 8.8 g/dL (12.2-16.2); Lymphocytes % (auto) 5.8 % (10.0-50.0); Mean Corpuscular Hemoglobin 29.1 pg (28.0-32.0); Mean Corpuscular Hgb Conc. 33.4 g/dL (32.0-36.0); Mean Corpuscular Volume 87.1 fL (80.0-100.0); Mean Platelet Volume 7.7 fL (7.4-10.4); Monocytes # (auto) 1.3 uL; Monocytes % (auto) 7.7 % (0.0-12.0); Neutrophils # (auto) 14.4 uL; Neutrophils % (auto) 83.8 % (37.0-80.0); Platelet Count (auto) 328 10^3/uL (140-450); Red Cell Distribution Width 14.5 % (11.6-16.0); White Blood Cell 17.2 10^3/uL (4.4-10.8)
[2016-09-01 04:56] LABS: Albumin 2.1 g/dL (3.4-5.0); Anion Gap 12 (5-15); Aspartate Aminotransferase 11 U/L (15-37); BUN/Creatinine Ratio 10.4; Blood Urea Nitrogen 61 mg/dL (7-18); Carbon Dioxide 27 mmol/L (21-32); Chloride 98 mmol/L (98-107); GFR African American 9 mL/min; GFR Non-African American 8 mL/min; Glucose 168 mg/dL (74-106); Potassium 3.7 mmol/L (3.5-5.1); Sodium 137 mmol/L (136-145)
[2016-09-01 05:01] LABS: Alkaline Phosphatase 150 U/L (45-117); Bilirubin, Total 0.5 mg/dL (0.2-1.0); Phosphorus 4.5 mg/dL (2.6-4.90); Total Protein 5.6 g/dL (6.4-8.2)
[2016-09-01] MEDS: SODIUM CHLORIDE 0.9% 1,000 ML IV SCH ×2 (07:45→11:00)
[2016-09-01] MEDS: HYDROmorphone HCL 2 MG/ML VL IV PRN ×3 (08:48→16:37)
[2016-09-01] MEDS: PROPOFOL 100 ML IV SCH ×3 (08:49→17:31)
[2016-09-01] MEDS: MIDAZOLAM DRIP 100 mg/100mL NS 100 ML IV SCH ×3 (08:49→16:36)
[2016-09-01] MEDS: cloNIDine 0.2 MG/24 HR PAT TD SCH (10:00)
[2016-09-01] MEDS: PANTOPRAZOLE SODIUM 40 MG/10 ML VIAL IV SCH ×2 (10:00→22:00)
[2016-09-01] MEDS: BUMETANIDE INJECTION 12.5 MG in GIVE UN-DILUTED 0 ML IV SCH ×2 (10:03→11:30)
[2016-09-01] MEDS: SODIUM CHLOR 0.9% PF (SALINE LOCK) 10ML VIAL IV SCH ×2 (10:03→22:00)
[2016-09-01] MEDS: CEFTRIAXONE SODIUM 2 GM in D5W 5% 50 ML IV SCH (11:00)
[2016-09-01] MEDS: FLUCONAZOLE 100MG/50ML 50 ML IV SCH (12:13)
[2016-09-01] MEDS ORDERED: TPN PER PHARMACY IV NR ×8 (20:00)
[2016-09-02] VITALS (93 sets, daily range): BP systolic 121–195; BP diastolic 51–107
[2016-09-02] MEDS: ALBUTEROL SULF 2.5 MG/0.5ML(0.5%) NEB SOLN NEB SCH ×4 (00:25→18:35)
[2016-09-02] MEDS: InsuLIN REG 1unit/0.01ml Soln (100units/ml) SC SCH ×4 (00:35→18:22)
[2016-09-02] MEDS: ACCU-CHEK COMFORT CURVE STRIP VI SCH ×4 (00:35→18:21)
[2016-09-02] MEDS: LINEZOLID 600MG/300ML 300 ML IV SCH ×2 (01:00→13:14)
[2016-09-02] MEDS: HYDROmorphone HCL 2 MG/ML VL IV PRN ×2 (03:42→10:15)
[2016-09-02 03:56] LABS: Basophils # (auto) 0 uL; Eosinophils # (auto) 0.6 uL; Eosinophils % (auto) 3.6 % (0.0-7.0); Hematocrit 27.5 % (36.0-46.0); Lymphocytes % (auto) 5.9 % (10.0-50.0); Mean Corpuscular Hemoglobin 28.5 pg (28.0-32.0); Mean Corpuscular Hgb Conc. 32.8 g/dL (32.0-36.0); Mean Corpuscular Volume 86.9 fL (80.0-100.0); Mean Platelet Volume 7.6 fL (7.4-10.4); Monocytes # (auto) 1.3 uL; Neutrophils # (auto) 13.5 uL; Neutrophils % (auto) 82.5 % (37.0-80.0); Platelet Count (auto) 355 10^3/uL (140-450); Red Cell Distribution Width 14.7 % (11.6-16.0); White Blood Cell 16.4 10^3/uL (4.4-10.8)
[2016-09-02] MEDS: metroNIDAZOLE 500MG/100ML 100 ML IV SCH ×4 (04:00→22:00)
[2016-09-02 04:11] LABS: Albumin 2.1 g/dL (3.4-5.0); BUN/Creatinine Ratio 11.7; Bilirubin, Total 0.5 mg/dL (0.2-1.0); Calcium 7.1 mg/dL (8.5-10.1); Magnesium 2.1 mg/dL (1.6-2.6); Phosphorus 5.5 mg/dL (2.6-4.90); Potassium 3.8 mmol/L (3.5-5.1); Total Protein 6.1 g/dL (6.4-8.2)
[2016-09-02] MEDS: SODIUM CHLORIDE 0.9% 1,000 ML IV SCH ×2 (07:30→15:30)
[2016-09-02] MEDS ORDERED: SODIUM CHL 0.9% 1000 ML BAG XX ONE (08:00)
[2016-09-02] MEDS ORDERED: EPOETIN ALFA 10,000 UNIT/1 ML VIAL IV ONE (08:00)
[2016-09-02] MEDS: PROPOFOL 100 ML IV SCH ×3 (08:20→17:30)
[2016-09-02] MEDS: PANTOPRAZOLE SODIUM 40 MG/10 ML VIAL IV SCH ×2 (10:04→22:00)
[2016-09-02] MEDS: cloNIDine 0.2 MG/24 HR PAT TD SCH (10:04)
[2016-09-02] MEDS: SODIUM CHLOR 0.9% PF (SALINE LOCK) 10ML VIAL IV SCH ×2 (10:04→22:00)
[2016-09-02] MEDS: CEFTRIAXONE SODIUM 2 GM in D5W 5% 50 ML IV SCH (11:00)
[2016-09-02] MEDS: BUMETANIDE INJECTION 12.5 MG in GIVE UN-DILUTED 0 ML IV SCH (11:30)
[2016-09-02] MEDS: FLUCONAZOLE 100MG/50ML 50 ML IV SCH (12:00)
[2016-09-02] MEDS: MIDAZOLAM DRIP 100 mg/100mL NS 100 ML IV SCH (14:56)
[2016-09-02] MEDS ORDERED: GASTROGRAFIN 30 ML SOL ONE (15:24)
[2016-09-02] MEDS ORDERED: TPN PER PHARMACY IV NR ×9 (20:00)
[2016-09-03] VITALS (94 sets, daily range): BP systolic 118–191; BP diastolic 47–111
[2016-09-03] MEDS: ALBUTEROL SULF 2.5 MG/0.5ML(0.5%) NEB SOLN NEB SCH ×4 (00:35→18:55)
[2016-09-03] MEDS: LINEZOLID 600MG/300ML 300 ML IV SCH ×2 (01:00→13:16)
[2016-09-03] MEDS: metroNIDAZOLE 500MG/100ML 100 ML IV SCH ×4 (04:00→22:28)
[2016-09-03 04:59] LABS: BUN/Creatinine Ratio 11.1; Bilirubin, Total 0.5 mg/dL (0.2-1.0); Calcium 7.1 mg/dL (8.5-10.1); Magnesium 2.1 mg/dL (1.6-2.6); Phosphorus 4.2 mg/dL (2.6-4.90); Potassium 3.5 mmol/L (3.5-5.1); Total Protein 6.1 g/dL (6.4-8.2)
[2016-09-03] MEDS: ACCU-CHEK COMFORT CURVE STRIP VI SCH ×5 (06:00→23:57)
[2016-09-03] MEDS: InsuLIN REG 1unit/0.01ml Soln (100units/ml) SC SCH ×4 (06:00→17:55)
[2016-09-03] MEDS ORDERED: GASTROGRAFIN 30 ML SOL ONE (07:17)
[2016-09-03] MEDS: HYDROmorphone HCL 2 MG/ML VL IV PRN ×3 (09:26→20:38)
[2016-09-03] MEDS: PANTOPRAZOLE SODIUM 40 MG/10 ML VIAL IV SCH ×2 (09:26→22:28)
[2016-09-03] MEDS: cloNIDine 0.2 MG/24 HR PAT TD SCH (09:27)
[2016-09-03] MEDS: SODIUM CHLOR 0.9% PF (SALINE LOCK) 10ML VIAL IV SCH ×2 (10:00→22:28)
[2016-09-03] MEDS: CEFTRIAXONE SODIUM 2 GM in D5W 5% 50 ML IV SCH (10:38)
[2016-09-03] MEDS: hydrALAZINE HCL 20 MG/ML VL IV PRN (10:39)
[2016-09-03] MEDS: FLUCONAZOLE 100MG/50ML 50 ML IV SCH (11:30)
[2016-09-03] MEDS: BUMETANIDE INJECTION 12.5 MG in GIVE UN-DILUTED 0 ML IV SCH ×2 (11:30→22:35)
[2016-09-03] MEDS: SODIUM CHLORIDE 0.9% 1,000 ML IV SCH (15:30)
[2016-09-03] MEDS: PROPOFOL 100 ML IV SCH ×3 (16:02→22:26)
[2016-09-03] MEDS ORDERED: TPN PER PHARMACY IV NR ×9 (20:00)
[2016-09-03] MEDS: MIDAZOLAM DRIP 100 mg/100mL NS 100 ML IV SCH (22:28)
[2016-09-04] VITALS (98 sets, daily range): BP systolic 119–182; BP diastolic 45–89
[2016-09-04] MEDS: ALBUTEROL SULF 2.5 MG/0.5ML(0.5%) NEB SOLN NEB SCH ×4 (00:30→18:59)
[2016-09-04] MEDS: LINEZOLID 600MG/300ML 300 ML IV SCH ×2 (01:13→14:09)
[2016-09-04] MEDS: HYDROmorphone HCL 2 MG/ML VL IV PRN ×6 (03:35→20:16)
[2016-09-04] MEDS: metroNIDAZOLE 500MG/100ML 100 ML IV SCH ×4 (04:00→21:58)
[2016-09-04 04:17] LABS: Albumin 1.6 g/dL (3.4-5.0); BUN/Creatinine Ratio 12.9; Bilirubin, Total 0.4 mg/dL (0.2-1.0); Magnesium 1.7 mg/dL (1.6-2.6); Phosphorus 4.1 mg/dL (2.6-4.90)
[2016-09-04 04:30] LABS: Calcium 5.9 mg/dL (8.5-10.1)
[2016-09-04 04:32] LABS: Potassium 2.8 mmol/L (3.5-5.1)
[2016-09-04 04:35] LABS: INR 1.17 (0.9-1.15)
[2016-09-04 04:59] LABS: Basophils # (auto) 0 uL; Basophils % (auto) 0.2 % (0.0-2.0); DEFINITIVE VIEW TRANSMISSION; Eosinophils # (auto) 0.5 uL; Eosinophils % (auto) 4.2 % (0.0-7.0); Hematocrit 21.4 % (36.0-46.0); Hemoglobin 7.2 g/dL (12.2-16.2); Lymphocytes % (auto) 9.3 % (10.0-50.0); Mean Corpuscular Hemoglobin 29.4 pg (28.0-32.0); Mean Corpuscular Hgb Conc. 33.4 g/dL (32.0-36.0); Mean Corpuscular Volume 87.8 fL (80.0-100.0); Mean Platelet Volume 7.7 fL (7.4-10.4); Monocytes # (auto) 1.1 uL; Monocytes % (auto) 10.1 % (0.0-12.0); Neutrophils # (auto) 8.5 uL; Neutrophils % (auto) 76.2 % (37.0-80.0); Platelet Count (auto) 236 10^3/uL (140-450); Red Cell Distribution Width 14.3 % (11.6-16.0); White Blood Cell 11.1 10^3/uL (4.4-10.8)
[2016-09-04] MEDS: PROPOFOL 100 ML IV SCH ×2 (05:27→09:05)
[2016-09-04] MEDS: InsuLIN REG 1unit/0.01ml Soln (100units/ml) SC SCH ×4 (06:00→18:02)
[2016-09-04] MEDS: ACCU-CHEK COMFORT CURVE STRIP VI SCH ×3 (06:18→17:56)
[2016-09-04] MEDS ORDERED: SODIUM CHL 0.9% 1000 ML BAG XX ONE (08:00)
[2016-09-04] MEDS ORDERED: EPOETIN ALFA 10,000 UNIT/1 ML VIAL IV ONE (08:00)
[2016-09-04] MEDS ORDERED: POTASSIUM CHL 20MEQ/100ML 100 ML IV ONE ×2 (08:45→08:55)
[2016-09-04] MEDS: SODIUM CHLOR 0.9% PF (SALINE LOCK) 10ML VIAL IV SCH ×2 (10:00→22:03)
[2016-09-04] MEDS: PANTOPRAZOLE SODIUM 40 MG/10 ML VIAL IV SCH ×2 (10:03→21:58)
[2016-09-04] MEDS: cloNIDine 0.2 MG/24 HR PAT TD SCH (10:04)
[2016-09-04] MEDS: CEFTRIAXONE SODIUM 2 GM in D5W 5% 50 ML IV SCH (11:28)
[2016-09-04] MEDS: FLUCONAZOLE 100MG/50ML 50 ML IV SCH (12:02)
[2016-09-04] MEDS: MIDAZOLAM DRIP 100 mg/100mL NS 100 ML IV SCH (14:02)
[2016-09-04] MEDS: SODIUM CHLORIDE 0.9% 1,000 ML IV SCH (14:10)
[2016-09-04] MEDS ORDERED: CALCIUM GLUC 4.65 MEQ/10ML 4.65 MEQ in NS 0.9% 50 ML IV ONE (16:00)
[2016-09-04] MEDS: BUMETANIDE INJECTION 12.5 MG in GIVE UN-DILUTED 0 ML IV SCH (19:58)
[2016-09-04] MEDS ORDERED: TPN PER PHARMACY IV NR ×9 (20:00)
[2016-09-04] MEDS: hydrALAZINE HCL 20 MG/ML VL IV PRN (23:09)
[2016-09-05] VITALS (105 sets, daily range): BP systolic 108–192; BP diastolic 44–106
[2016-09-05] MEDS: HYDROmorphone HCL 2 MG/ML VL IV PRN ×4 (00:38→23:37)
[2016-09-05] MEDS: ALBUTEROL SULF 2.5 MG/0.5ML(0.5%) NEB SOLN NEB SCH ×4 (00:47→18:33)
[2016-09-05] MEDS: PROPOFOL 100 ML IV SCH ×5 (01:07→21:38)
[2016-09-05] MEDS: LINEZOLID 600MG/300ML 300 ML IV SCH ×2 (01:10→13:20)
[2016-09-05] MEDS: metroNIDAZOLE 500MG/100ML 100 ML IV SCH ×4 (04:29→21:38)
[2016-09-05 05:07] LABS: Albumin 2.1 g/dL (3.4-5.0); BUN/Creatinine Ratio 13.6; Bilirubin, Total 0.7 mg/dL (0.2-1.0); Calcium 7.4 mg/dL (8.5-10.1); Magnesium 2.1 mg/dL (1.6-2.6); Phosphorus 3.5 mg/dL (2.6-4.90); Potassium 3.2 mmol/L (3.5-5.1); Total Protein 6.6 g/dL (6.4-8.2)
[2016-09-05 05:29] LABS: Basophils # (auto) 0 uL; Basophils % (auto) 0.3 % (0.0-2.0); DEFINITIVE VIEW TRANSMISSION; Eosinophils # (auto) 0.7 uL; Eosinophils % (auto) 4.8 % (0.0-7.0); Hemoglobin 11.1 g/dL (12.2-16.2); Lymphocytes % (auto) 6.9 % (10.0-50.0); Mean Corpuscular Hemoglobin 28.5 pg (28.0-32.0); Mean Corpuscular Hgb Conc. 33.5 g/dL (32.0-36.0); Mean Corpuscular Volume 85.2 fL (80.0-100.0); Mean Platelet Volume 7.7 fL (7.4-10.4); Monocytes # (auto) 1.5 uL; Monocytes % (auto) 10.1 % (0.0-12.0); Neutrophils # (auto) 11.5 uL; Neutrophils % (auto) 77.9 % (37.0-80.0); Platelet Count (auto) 229 10^3/uL (140-450); Red Cell Distribution Width 14.4 % (11.6-16.0); White Blood Cell 14.8 10^3/uL (4.4-10.8)
[2016-09-05] MEDS: InsuLIN REG 1unit/0.01ml Soln (100units/ml) SC SCH ×5 (06:00→23:38)
[2016-09-05] MEDS: ACCU-CHEK COMFORT CURVE STRIP VI SCH ×5 (06:00→23:38)
[2016-09-05] MEDS: PANTOPRAZOLE SODIUM 40 MG/10 ML VIAL IV SCH ×2 (09:49→21:38)
[2016-09-05] MEDS: SODIUM CHLOR 0.9% PF (SALINE LOCK) 10ML VIAL IV SCH ×2 (09:51→21:38)
[2016-09-05] MEDS: cloNIDine 0.2 MG/24 HR PAT TD SCH (09:51)
[2016-09-05] MEDS: CEFTRIAXONE SODIUM 2 GM in D5W 5% 50 ML IV SCH (11:12)
[2016-09-05] MEDS: FLUCONAZOLE 100MG/50ML 50 ML IV SCH (12:09)
[2016-09-05] MEDS: MIDAZOLAM DRIP 100 mg/100mL NS 100 ML IV SCH (13:20)
[2016-09-05] MEDS: hydrALAZINE HCL 20 MG/ML VL IV PRN ×2 (14:41→20:54)
[2016-09-05] MEDS: SODIUM CHLORIDE 0.9% 1,000 ML IV SCH (14:41)
[2016-09-05] MEDS ORDERED: TPN PER PHARMACY IV NR ×10 (20:00)
[2016-09-05 22:02] LABS: Magnesium 2.2 mg/dL (1.6-2.6); Potassium 3.9 mmol/L (3.5-5.1)
[2016-09-06] VITALS (99 sets, daily range): BP systolic 104–197; BP diastolic 41–103
[2016-09-06] MEDS ORDERED: ATROPINE SULFATE 0.4 MG/1 ML VIAL ONE (00:15)
[2016-09-06] MEDS: ALBUTEROL SULF 2.5 MG/0.5ML(0.5%) NEB SOLN NEB SCH ×4 (00:42→23:50)
[2016-09-06] MEDS: LINEZOLID 600MG/300ML 300 ML IV SCH ×2 (00:53→14:07)
[2016-09-06] MEDS: metroNIDAZOLE 500MG/100ML 100 ML IV SCH ×4 (03:30→22:00)
[2016-09-06 03:56] LABS: Basophils # (auto) 0 uL; Basophils % (auto) 0.2 % (0.0-2.0); Eosinophils # (auto) 0.3 uL; Eosinophils % (auto) 2.7 % (0.0-7.0); Hematocrit 31.4 % (36.0-46.0); Hemoglobin 10.4 g/dL (12.2-16.2); Lymphocytes # (auto) 0.9 uL; Lymphocytes % (auto) 7.6 % (10.0-50.0); Mean Corpuscular Hemoglobin 28.5 pg (28.0-32.0); Mean Corpuscular Hgb Conc. 32.9 g/dL (32.0-36.0); Mean Corpuscular Volume 86.4 fL (80.0-100.0); Mean Platelet Volume 7.6 fL (7.4-10.4); Monocytes # (auto) 1.3 uL; Monocytes % (auto) 10.6 % (0.0-12.0); Neutrophils # (auto) 9.4 uL; Neutrophils % (auto) 78.9 % (37.0-80.0); Platelet Count (auto) 225 10^3/uL (140-450); Red Cell Distribution Width 14.9 % (11.6-16.0); White Blood Cell 11.9 10^3/uL (4.4-10.8)
[2016-09-06 04:17] LABS: Albumin 2.1 g/dL (3.4-5.0); BUN/Creatinine Ratio 15.1; Bilirubin, Total 0.6 mg/dL (0.2-1.0); Calcium 7.8 mg/dL (8.5-10.1); Magnesium 2.1 mg/dL (1.6-2.6); Phosphorus 4.8 mg/dL (2.6-4.90); Potassium 3.8 mmol/L (3.5-5.1); Total Protein 6.6 g/dL (6.4-8.2)
[2016-09-06] MEDS: hydrALAZINE HCL 20 MG/ML VL IV PRN (04:56)
[2016-09-06] MEDS: InsuLIN REG 1unit/0.01ml Soln (100units/ml) SC SCH ×2 (05:45→18:56)
[2016-09-06] MEDS: ACCU-CHEK COMFORT CURVE STRIP VI SCH ×3 (05:45→18:30)
[2016-09-06] MEDS: PROPOFOL 100 ML IV SCH ×3 (06:27→13:15)
[2016-09-06] MEDS ORDERED: SODIUM CHL 0.9% 1000 ML BAG XX ONE (08:00)
[2016-09-06] MEDS ORDERED: EPOETIN ALFA 10,000 UNIT/1 ML VIAL IV ONE (08:00)
[2016-09-06] MEDS: HYDROmorphone HCL 2 MG/ML VL IV PRN ×2 (09:02→12:00)
[2016-09-06] MEDS: SODIUM CHLOR 0.9% PF (SALINE LOCK) 10ML VIAL IV SCH ×2 (11:15→22:03)
[2016-09-06] MEDS: PANTOPRAZOLE SODIUM 40 MG/10 ML VIAL IV SCH ×2 (11:15→22:02)
[2016-09-06] MEDS: cloNIDine 0.2 MG/24 HR PAT TD SCH (11:16)
[2016-09-06] MEDS: CEFTRIAXONE SODIUM 2 GM in D5W 5% 50 ML IV SCH (11:17)
[2016-09-06] MEDS ORDERED: PROMETHAZINE HCL 25 MG/ML 1ML IV PRN (12:30)
[2016-09-06] MEDS ORDERED: DEXTROSE (50%) 50ML SYRG IV SCH (12:30)
[2016-09-06] MEDS ORDERED: TPN PER PHARMACY 0 ML IV SCH (12:30)
[2016-09-06] MEDS ORDERED: HYDROmorphone HCL 2 MG/ML VL IV PRN (12:30)
[2016-09-06] MEDS: FLUCONAZOLE 100MG/50ML 50 ML IV SCH (13:21)
[2016-09-06] MEDS: fentaNYL Drip 2500mCg/250mlNS 250 ML IV SCH (13:22)
[2016-09-06] MEDS: MIDAZOLAM DRIP 100 mg/100mL NS 100 ML IV SCH (13:29)
[2016-09-06] MEDS: SODIUM CHLORIDE 0.9% 1,000 ML IV SCH (14:07)
[2016-09-06] MEDS ORDERED: TPN PER PHARMACY IV NR ×9 (20:00)
[2016-09-07] VITALS (56 sets, daily range): BP systolic 113–184; BP diastolic 42–119
[2016-09-07] MEDS: LINEZOLID 600MG/300ML 300 ML IV SCH ×2 (01:00→13:21)
[2016-09-07 03:45] LABS: Basophils # (auto) 0 uL; Basophils % (auto) 0.2 % (0.0-2.0); DEFINITIVE VIEW TRANSMISSION; Eosinophils # (auto) 0.7 uL; Eosinophils % (auto) 5.8 % (0.0-7.0); Hematocrit 32.5 % (36.0-46.0); Hemoglobin 10.6 g/dL (12.2-16.2); Lymphocytes # (auto) 1.1 uL; Lymphocytes % (auto) 8.9 % (10.0-50.0); Mean Corpuscular Hemoglobin 28.3 pg (28.0-32.0); Mean Corpuscular Hgb Conc. 32.5 g/dL (32.0-36.0); Mean Corpuscular Volume 86.8 fL (80.0-100.0); Mean Platelet Volume 7.8 fL (7.4-10.4); Monocytes # (auto) 1.5 uL; Monocytes % (auto) 11.9 % (0.0-12.0); Neutrophils # (auto) 9.3 uL; Neutrophils % (auto) 73.2 % (37.0-80.0); Platelet Count (auto) 182 10^3/uL (140-450); Red Cell Distribution Width 14.9 % (11.6-16.0); White Blood Cell 12.8 10^3/uL (4.4-10.8)
[2016-09-07] MEDS: metroNIDAZOLE 500MG/100ML 100 ML IV SCH ×4 (04:09→21:40)
[2016-09-07 04:10] LABS: Albumin 2.3 g/dL (3.4-5.0); BUN/Creatinine Ratio 15.5; Bilirubin, Total 0.6 mg/dL (0.2-1.0); Magnesium 2.1 mg/dL (1.6-2.6); Phosphorus 4.1 mg/dL (2.6-4.90); Potassium 4.4 mmol/L (3.5-5.1)
[2016-09-07] MEDS: hydrALAZINE HCL 20 MG/ML VL IV SCH ×4 (06:00→18:20)
[2016-09-07] MEDS: InsuLIN REG 1unit/0.01ml Soln (100units/ml) SC SCH ×4 (06:00→17:37)
[2016-09-07] MEDS: ACCU-CHEK COMFORT CURVE STRIP VI SCH ×4 (06:00→17:35)
[2016-09-07] MEDS: ALBUTEROL SULF 2.5 MG/0.5ML(0.5%) NEB SOLN NEB SCH ×3 (07:06→18:56)
[2016-09-07] MEDS: PROPOFOL 100 ML IV SCH ×2 (07:25→16:06)
[2016-09-07] MEDS ORDERED: BUMETANIDE (0.25 MG/ML) INJ 10ML IV ONE (10:30)
[2016-09-07] MEDS: SODIUM CHLOR 0.9% PF (SALINE LOCK) 10ML VIAL IV SCH ×2 (10:48→22:11)
[2016-09-07] MEDS: PANTOPRAZOLE SODIUM 40 MG/10 ML VIAL IV SCH ×2 (10:49→21:39)
[2016-09-07] MEDS: CEFTRIAXONE SODIUM 2 GM in D5W 5% 50 ML IV SCH (12:58)
[2016-09-07] MEDS: FLUCONAZOLE 100MG/50ML 50 ML IV SCH (12:59)
[2016-09-07] MEDS: MIDAZOLAM DRIP 100 mg/100mL NS 100 ML IV SCH (14:02)
[2016-09-07] MEDS: SODIUM CHLORIDE 0.9% 1,000 ML IV SCH (15:30)
[2016-09-07] MEDS ORDERED: TPN PER PHARMACY IV NR ×9 (20:00)
[2016-09-08] VITALS (87 sets, daily range): BP systolic 120–196; BP diastolic 44–103
[2016-09-08] MEDS: ALBUTEROL SULF 2.5 MG/0.5ML(0.5%) NEB SOLN NEB SCH ×4 (00:25→18:07)
[2016-09-08] MEDS: hydrALAZINE HCL 20 MG/ML VL IV SCH ×4 (01:34→17:38)
[2016-09-08] MEDS: LINEZOLID 600MG/300ML 300 ML IV SCH ×2 (01:36→13:11)
[2016-09-08 04:00] LABS: Basophils # (auto) 0 uL; Basophils % (auto) 0.1 % (0.0-2.0); Eosinophils # (auto) 0.4 uL; Eosinophils % (auto) 3.4 % (0.0-7.0); Hematocrit 31.1 % (36.0-46.0); Hemoglobin 10.1 g/dL (12.2-16.2); Lymphocytes # (auto) 0.9 uL; Lymphocytes % (auto) 7.8 % (10.0-50.0); Mean Corpuscular Hemoglobin 28.5 pg (28.0-32.0); Mean Corpuscular Hgb Conc. 32.6 g/dL (32.0-36.0); Mean Corpuscular Volume 87.5 fL (80.0-100.0); Mean Platelet Volume 7.9 fL (7.4-10.4); Monocytes # (auto) 1.3 uL; Monocytes % (auto) 11.8 % (0.0-12.0); Neutrophils # (auto) 8.6 uL; Neutrophils % (auto) 76.9 % (37.0-80.0); Platelet Count (auto) 192 10^3/uL (140-450); Red Cell Distribution Width 15.5 % (11.6-16.0); White Blood Cell 11.1 10^3/uL (4.4-10.8)
[2016-09-08] MEDS: metroNIDAZOLE 500MG/100ML 100 ML IV SCH ×4 (04:11→22:00)
[2016-09-08] MEDS: PROPOFOL 100 ML IV SCH ×2 (04:11→19:41)
[2016-09-08] MEDS: fentaNYL Drip 2500mCg/250mlNS 250 ML IV SCH ×2 (04:13→12:00)
[2016-09-08 04:28] LABS: Albumin 2.3 g/dL (3.4-5.0); BUN/Creatinine Ratio 17.9; Bilirubin, Total 0.6 mg/dL (0.2-1.0); Calcium 8.1 mg/dL (8.5-10.1); Magnesium 2.3 mg/dL (1.6-2.6); Phosphorus 4.1 mg/dL (2.6-4.90); Potassium 5.2 mmol/L (3.5-5.1); Total Protein 7.1 g/dL (6.4-8.2)
[2016-09-08] MEDS: InsuLIN REG 1unit/0.01ml Soln (100units/ml) SC SCH ×5 (06:00→23:59)
[2016-09-08] MEDS: ACCU-CHEK COMFORT CURVE STRIP VI SCH ×5 (06:00→23:58)
[2016-09-08] MEDS: PANTOPRAZOLE SODIUM 40 MG/10 ML VIAL IV SCH ×2 (09:37→22:00)
[2016-09-08] MEDS: SODIUM CHLOR 0.9% PF (SALINE LOCK) 10ML VIAL IV SCH ×2 (10:00→22:00)
[2016-09-08] MEDS: CEFTRIAXONE SODIUM 2 GM in D5W 5% 50 ML IV SCH (10:58)
[2016-09-08] MEDS: FLUCONAZOLE 100MG/50ML 50 ML IV SCH (11:37)
[2016-09-08] MEDS: SODIUM CHLORIDE 0.9% 1,000 ML IV SCH (15:38)
[2016-09-08] MEDS ORDERED: TPN PER PHARMACY IV NR ×9 (20:00)
[2016-09-09] VITALS (95 sets, daily range): BP systolic 90–213; BP diastolic 32–95
[2016-09-09] MEDS: ALBUTEROL SULF 2.5 MG/0.5ML(0.5%) NEB SOLN NEB SCH ×4 (00:03→18:00)
[2016-09-09] MEDS: LINEZOLID 600MG/300ML 300 ML IV SCH ×2 (01:00→15:00)
[2016-09-09] MEDS: metroNIDAZOLE 500MG/100ML 100 ML IV SCH ×4 (03:43→22:02)
[2016-09-09 04:30] LABS: Albumin 2.2 g/dL (3.4-5.0); Bilirubin, Total 0.5 mg/dL (0.2-1.0); Magnesium 2.3 mg/dL (1.6-2.6); Phosphorus 4.2 mg/dL (2.6-4.90); Total Protein 6.6 g/dL (6.4-8.2)
[2016-09-09] MEDS: ACCU-CHEK COMFORT CURVE STRIP VI SCH ×3 (06:00→18:03)
[2016-09-09] MEDS: InsuLIN REG 1unit/0.01ml Soln (100units/ml) SC SCH ×3 (06:00→18:00)
[2016-09-09] MEDS: hydrALAZINE HCL 20 MG/ML VL IV SCH ×4 (06:00→18:37)
[2016-09-09] MEDS: MIDAZOLAM DRIP 100 mg/100mL NS 100 ML IV SCH ×2 (07:50→14:02)
[2016-09-09] MEDS: PROPOFOL 100 ML IV SCH (08:02)
[2016-09-09] MEDS: PANTOPRAZOLE SODIUM 40 MG/10 ML VIAL IV SCH ×2 (09:37→22:02)
[2016-09-09] MEDS: SODIUM CHLOR 0.9% PF (SALINE LOCK) 10ML VIAL IV SCH ×2 (09:37→22:02)
[2016-09-09] MEDS ORDERED: NOREPINEPHRINE BITARTRATE 250 ML IV SCH (11:26)
[2016-09-09] MEDS ORDERED: ALBUMIN 25% 100 ML IV ONE ×2 (11:27→11:30)
[2016-09-09] MEDS ORDERED: EPOETIN ALFA 10,000 UNIT/1 ML VIAL IV ONE (11:45)
[2016-09-09] MEDS ORDERED: SODIUM CHL 0.9% 1000 ML BAG XX ONE (11:45)
[2016-09-09] MEDS: fentaNYL Drip 2500mCg/250mlNS 250 ML IV SCH (12:10)
[2016-09-09] MEDS: FLUCONAZOLE 100MG/50ML 50 ML IV SCH (13:30)
[2016-09-09] MEDS: CEFTRIAXONE SODIUM 2 GM in D5W 5% 50 ML IV SCH (14:00)
[2016-09-09] MEDS: SODIUM CHLORIDE 0.9% 1,000 ML IV SCH (15:30)
[2016-09-09] MEDS ORDERED: TPN PER PHARMACY IV NR ×9 (20:00)
[2016-09-09] MEDS: LORazepam 2MG/ML-1ML VIAL IV PRN (21:39)
[2016-09-10] VITALS (48 sets, daily range): BP systolic 142–207; BP diastolic 70–133
[2016-09-10] MEDS: ALBUTEROL SULF 2.5 MG/0.5ML(0.5%) NEB SOLN NEB SCH ×4 (00:04→18:50)
[2016-09-10] MEDS: LINEZOLID 600MG/300ML 300 ML IV SCH ×2 (02:00→12:57)
[2016-09-10] MEDS: InsuLIN REG 1unit/0.01ml Soln (100units/ml) SC SCH ×4 (02:00→18:22)
[2016-09-10] MEDS: ACCU-CHEK COMFORT CURVE STRIP VI SCH ×4 (02:00→18:02)
[2016-09-10] MEDS: hydrALAZINE HCL 20 MG/ML VL IV SCH ×4 (02:15→18:02)
[2016-09-10] MEDS: metroNIDAZOLE 500MG/100ML 100 ML IV SCH ×4 (04:00→22:00)
[2016-09-10 04:22] LABS: Albumin 2.7 g/dL (3.4-5.0); BUN/Creatinine Ratio 20.2; Bilirubin, Total 0.6 mg/dL (0.2-1.0); Calcium 8.2 mg/dL (8.5-10.1); Magnesium 2.2 mg/dL (1.6-2.6); Phosphorus 3.2 mg/dL (2.6-4.90); Total Protein 7.4 g/dL (6.4-8.2)
[2016-09-10] MEDS: SODIUM CHLOR 0.9% PF (SALINE LOCK) 10ML VIAL IV SCH ×2 (09:52→22:00)
[2016-09-10] MEDS: PANTOPRAZOLE SODIUM 40 MG/10 ML VIAL IV SCH ×2 (09:54→22:00)
[2016-09-10] MEDS ORDERED: METOPROLOL TARTRATE 1MG/1ML-5ML VIAL IV ONE (10:25)
[2016-09-10] MEDS: CEFTRIAXONE SODIUM 2 GM in D5W 5% 50 ML IV SCH (10:41)
[2016-09-10] MEDS: FLUCONAZOLE 100MG/50ML 50 ML IV SCH (11:41)
[2016-09-10] MEDS ORDERED: MORPHINE SULF INJ 2 MG/ML SYRINGE 1ML IV PRN (13:00)
[2016-09-10] MEDS: ALBUMIN 25% 100 ML IV SCH ×2 (13:48→21:39)
[2016-09-10] MEDS: METOPROLOL TARTRATE 1MG/1ML-5ML VIAL IV SCH ×2 (14:19→22:58)
[2016-09-10] MEDS: SODIUM CHLORIDE 0.9% 1,000 ML IV SCH (15:05)
[2016-09-10] MEDS: CLONIDINE 0.3 MG/24 HR TD SCH (16:01)
[2016-09-10] MEDS ORDERED: cloNIDine HCL 0.1 MG TAB PO ONE (16:45)
[2016-09-10] MEDS ORDERED: cloNIDine HCL 0.1 MG TAB ONE (16:49)
[2016-09-10] MEDS: MORPHINE SULF INJ 2 MG/ML SYRINGE 1ML IV PRN (18:03)
[2016-09-10 19:41] LABS: B-Type Natriuretic Peptide 2132.54 pg/mL (0-100); Temperature: 22.4 C (20.0-25.0)
[2016-09-10] MEDS ORDERED: FUROSEMIDE 40 MG/4 ML VIAL ONE (19:42)
[2016-09-10] MEDS ORDERED: TPN PER PHARMACY IV NR ×10 (20:00)
[2016-09-11] VITALS (54 sets, daily range): BP systolic 103–209; BP diastolic 32–118
[2016-09-11] MEDS: LINEZOLID 600MG/300ML 300 ML IV SCH ×2 (01:00→13:01)
[2016-09-11] MEDS: ACCU-CHEK COMFORT CURVE STRIP VI SCH ×4 (01:00→17:18)
[2016-09-11] MEDS: InsuLIN REG 1unit/0.01ml Soln (100units/ml) SC SCH ×4 (01:00→17:12)
[2016-09-11] MEDS: hydrALAZINE HCL 20 MG/ML VL IV SCH ×3 (01:10→12:01)
[2016-09-11] MEDS: ALBUTEROL SULF 2.5 MG/0.5ML(0.5%) NEB SOLN NEB SCH ×4 (01:23→18:50)
[2016-09-11] MEDS: MORPHINE SULF INJ 2 MG/ML SYRINGE 1ML IV PRN ×2 (02:00→22:23)
[2016-09-11] MEDS: metroNIDAZOLE 500MG/100ML 100 ML IV SCH ×2 (04:05→09:34)
[2016-09-11] MEDS: LORazepam 2MG/ML-1ML VIAL IV PRN (04:06)
[2016-09-11 04:24] LABS: Albumin 3.7 g/dL (3.4-5.0); BUN/Creatinine Ratio 23.5; Bilirubin, Total 0.6 mg/dL (0.2-1.0); Calcium 8.4 mg/dL (8.5-10.1); Magnesium 2.1 mg/dL (1.6-2.6); Potassium 3.2 mmol/L (3.5-5.1)
[2016-09-11 05:20] LABS: Basophils # (auto) 0 uL; Basophils % (auto) 0.1 % (0.0-2.0); Eosinophils # (auto) 0 uL; Eosinophils % (auto) 0.1 % (0.0-7.0); Hematocrit 30.6 % (36.0-46.0); Hemoglobin 9.9 g/dL (12.2-16.2); Lymphocytes # (auto) 0.9 uL; Lymphocytes % (auto) 6.3 % (10.0-50.0); Mean Corpuscular Hemoglobin 28.8 pg (28.0-32.0); Mean Corpuscular Hgb Conc. 32.2 g/dL (32.0-36.0); Mean Corpuscular Volume 89.6 fL (80.0-100.0); Mean Platelet Volume 7.8 fL (7.4-10.4); Monocytes # (auto) 1.5 uL; Monocytes % (auto) 10.7 % (0.0-12.0); Neutrophils % (auto) 82.8 % (37.0-80.0); Platelet Count (auto) 167 10^3/uL (140-450); Red Cell Distribution Width 15.4 % (11.6-16.0); White Blood Cell 14.5 10^3/uL (4.4-10.8)
[2016-09-11] MEDS: ALBUMIN 25% 100 ML IV SCH (06:12)
[2016-09-11] MEDS: METOPROLOL TARTRATE 1MG/1ML-5ML VIAL IV SCH (07:52)
[2016-09-11] MEDS ORDERED: POTASSIUM CHL 20MEQ/100ML 100 ML IV ONE (09:15)
[2016-09-11] MEDS: SODIUM CHLOR 0.9% PF (SALINE LOCK) 10ML VIAL IV SCH ×2 (09:34→22:23)
[2016-09-11] MEDS: PANTOPRAZOLE SODIUM 40 MG/10 ML VIAL IV SCH ×2 (09:34→22:22)
[2016-09-11] MEDS: POTASSIUM CHL 20MEQ/100ML 100 ML IV SCH ×2 (09:39→10:47)
[2016-09-11] MEDS ORDERED: NIFEdipine 10 MG CAP PO ONE (10:45)
[2016-09-11] MEDS ORDERED: NIFEdipine ER 30 MG TAB PO ONE (10:45)
[2016-09-11] MEDS: NIFEdipine 10 MG CAP NG SCH ×2 (13:59→22:47)
[2016-09-11] MEDS ORDERED: BUMETANIDE (0.25 MG/ML) INJ 10ML IV ONE (14:45)
[2016-09-11] MEDS: ALBUTEROL SULF 2.5 MG/0.5ML(0.5%) NEB SOLN NEB PRN (16:27)
[2016-09-11] MEDS ORDERED: TPN PER PHARMACY IV NR ×11 (20:00)
[2016-09-12] VITALS (40 sets, daily range): BP systolic 114–196; BP diastolic 47–91
[2016-09-12] MEDS: ALBUTEROL SULF 2.5 MG/0.5ML(0.5%) NEB SOLN NEB SCH ×4 (00:29→18:40)
[2016-09-12] MEDS: NIFEdipine 10 MG CAP NG SCH (06:01)
[2016-09-12] MEDS: MORPHINE SULF INJ 2 MG/ML SYRINGE 1ML IV PRN ×2 (06:02→16:25)
[2016-09-12 06:37] LABS: Albumin 3.9 g/dL (3.4-5.0); BUN/Creatinine Ratio 27.7; Bilirubin, Total 1.1 mg/dL (0.2-1.0); Calcium 8.9 mg/dL (8.5-10.1); Magnesium 2.2 mg/dL (1.6-2.6); Phosphorus 4.7 mg/dL (2.6-4.90); Potassium 3.4 mmol/L (3.5-5.1); Total Protein 8.1 g/dL (6.4-8.2)
[2016-09-12] MEDS: PANTOPRAZOLE SODIUM 40 MG/10 ML VIAL IV SCH ×2 (09:30→21:15)
[2016-09-12] MEDS: NIFEdipine ER 30 MG TAB PO SCH (10:10)
[2016-09-12] MEDS: SODIUM CHLOR 0.9% PF (SALINE LOCK) 10ML VIAL IV SCH ×2 (10:22→21:15)
[2016-09-12] MEDS ORDERED: EPOETIN ALFA 10,000 UNIT/1 ML VIAL IV ONE (11:00)
[2016-09-12] MEDS ORDERED: SODIUM CHL 0.9% 1000 ML BAG XX ONE (11:00)
[2016-09-12] MEDS: SOD CHL 0.9%/ KCL 20MEQ 1,000 ML IV SCH (11:30)
[2016-09-12] MEDS ORDERED: POTASSIUM CHL 20MEQ/100ML 100 ML IV ONE (12:15)
[2016-09-12] MEDS: METOPROLOL TARTRATE 25 MG TAB PO SCH ×2 (15:51→21:15)
[2016-09-13] VITALS: BP 159/68
[2016-09-13] MEDS: ALBUTEROL SULF 2.5 MG/0.5ML(0.5%) NEB SOLN NEB SCH ×4 (00:55→19:09)
[2016-09-13] MEDS: MORPHINE SULF INJ 2 MG/ML SYRINGE 1ML IV PRN ×3 (01:41→15:45)
[2016-09-13 04:00] VITALS: BP 122/67
[2016-09-13 08:00] VITALS: BP 155/74
[2016-09-13] MEDS: PANTOPRAZOLE SODIUM 40 MG/10 ML VIAL IV SCH ×2 (09:47→22:04)
[2016-09-13] MEDS: SODIUM CHLOR 0.9% PF (SALINE LOCK) 10ML VIAL IV SCH ×2 (09:47→22:04)
[2016-09-13] MEDS: NIFEdipine ER 30 MG TAB PO SCH (09:48)
[2016-09-13] MEDS: METOPROLOL TARTRATE 25 MG TAB PO SCH ×2 (09:48→22:03)
[2016-09-13] MEDS: SOD CHL 0.9%/ KCL 20MEQ 1,000 ML IV SCH (10:00)
[2016-09-13 12:00] VITALS: BP 135/61
[2016-09-13 16:00] VITALS: BP 131/69
[2016-09-13 20:00] VITALS: BP 136/71
[2016-09-14] VITALS (7 sets, daily range): BP systolic 135–147; BP diastolic 62–75
[2016-09-14] MEDS: ALBUTEROL SULF 2.5 MG/0.5ML(0.5%) NEB SOLN NEB SCH ×4 (00:32→19:37)
[2016-09-14] MEDS: SOD CHL 0.9%/ KCL 20MEQ 1,000 ML IV SCH ×3 (03:30→22:57)
[2016-09-14 06:28] LABS: Basophils # (auto) 0 uL; Basophils % (auto) 0.3 % (0.0-2.0); Eosinophils # (auto) 0 uL; Eosinophils % (auto) 0.1 % (0.0-7.0); Hematocrit 28.3 % (36.0-46.0); Hemoglobin 9.2 g/dL (12.2-16.2); Lymphocytes # (auto) 1.3 uL; Lymphocytes % (auto) 11.7 % (10.0-50.0); Mean Corpuscular Hemoglobin 28.9 pg (28.0-32.0); Mean Corpuscular Hgb Conc. 32.4 g/dL (32.0-36.0); Mean Corpuscular Volume 89.3 fL (80.0-100.0); Mean Platelet Volume 7.6 fL (7.4-10.4); Monocytes # (auto) 1.6 uL; Monocytes % (auto) 14.6 % (0.0-12.0); Neutrophils # (auto) 7.9 uL; Neutrophils % (auto) 73.3 % (37.0-80.0); Platelet Count (auto) 178 10^3/uL (140-450); Red Cell Distribution Width 15.5 % (11.6-16.0); White Blood Cell 10.8 10^3/uL (4.4-10.8)
[2016-09-14 06:43] LABS: Potassium 3.8 mmol/L (3.5-5.1)
[2016-09-14 06:52] LABS: BUN/Creatinine Ratio 30.2; Calcium 7.9 mg/dL (8.5-10.1)
[2016-09-14] MEDS: METOPROLOL TARTRATE 25 MG TAB PO SCH ×2 (10:35→22:56)
[2016-09-14] MEDS: PANTOPRAZOLE SODIUM 40 MG/10 ML VIAL IV SCH ×2 (10:35→22:56)
[2016-09-14] MEDS: NIFEdipine ER 30 MG TAB PO SCH (10:36)
[2016-09-14] MEDS: SODIUM CHLOR 0.9% PF (SALINE LOCK) 10ML VIAL IV SCH ×2 (10:37→22:56)
[2016-09-14] MEDS: MORPHINE SULF INJ 2 MG/ML SYRINGE 1ML IV PRN (15:25)
[2016-09-14] MEDS: ALBUTEROL SULF 2.5 MG/0.5ML(0.5%) NEB SOLN NEB PRN (15:30)
[2016-09-15] VITALS (7 sets, daily range): BP systolic 138–169; BP diastolic 62–90
[2016-09-15] MEDS: MORPHINE SULF INJ 2 MG/ML SYRINGE 1ML IV PRN (00:01)
[2016-09-15] MEDS: ALBUTEROL SULF 2.5 MG/0.5ML(0.5%) NEB SOLN NEB SCH ×4 (01:40→18:42)
[2016-09-15] MEDS: LORazepam 2MG/ML-1ML VIAL IV PRN ×2 (02:02→23:59)
[2016-09-15] MEDS: PANTOPRAZOLE SODIUM 40 MG/10 ML VIAL IV SCH ×2 (09:37→22:04)
[2016-09-15] MEDS: SODIUM CHLOR 0.9% PF (SALINE LOCK) 10ML VIAL IV SCH ×2 (09:37→22:04)
[2016-09-15] MEDS: METOPROLOL TARTRATE 25 MG TAB PO SCH ×2 (09:38→22:05)
[2016-09-15] MEDS: NIFEdipine ER 30 MG TAB PO SCH (09:38)
[2016-09-15] MEDS ORDERED: hydrALAZINE HCL 20 MG/ML VL IV ONE (12:00)
[2016-09-16] MEDS: ALBUTEROL SULF 2.5 MG/0.5ML(0.5%) NEB SOLN NEB SCH ×4 (00:30→18:41)
[2016-09-16 00:43] VITALS: BP 163/76
[2016-09-16 00:50] VITALS: BP 143/71
[2016-09-16] MEDS: hydrALAZINE HCL 20 MG/ML VL IV PRN (04:52)
[2016-09-16] MEDS: SOD CHL 0.9%/ KCL 20MEQ 1,000 ML IV SCH (05:02)
[2016-09-16 05:43] LABS: Eosinophils # (auto) 0 uL; Neutrophils # (auto) 7.5 uL; SUSPECT VIEW TRANSMISSION
[2016-09-16 05:45] LABS: Potassium 3.3 mmol/L (3.5-5.1)
[2016-09-16 05:52] LABS: BUN/Creatinine Ratio 32.7
[2016-09-16 06:00] VITALS: BP 163/81
[2016-09-16 06:17] LABS: Basophils # (auto) 0 uL; Basophils % (auto) 0.4 % (0.0-2.0); Eosinophils % (auto) 0.3 % (0.0-7.0); Hematocrit 29.8 % (36.0-46.0); Hemoglobin 9.8 g/dL (12.2-16.2); Lymphocytes % (auto) 10.2 % (10.0-50.0); Mean Corpuscular Hemoglobin 30.5 pg (28.0-32.0); Mean Corpuscular Hgb Conc. 32.9 g/dL (32.0-36.0); Mean Corpuscular Volume 92.9 fL (80.0-100.0); Mean Platelet Volume 7.5 fL (7.4-10.4); Monocytes # (auto) 1.4 uL; Monocytes % (auto) 14.4 % (0.0-12.0); Neutrophils % (auto) 74.7 % (37.0-80.0); Platelet Count (auto) 186 10^3/uL (140-450); Red Cell Distribution Width 15.4 % (11.6-16.0); White Blood Cell 9.9 10^3/uL (4.4-10.8)
[2016-09-16] MEDS: SODIUM CHLOR 0.9% PF (SALINE LOCK) 10ML VIAL IV SCH ×2 (10:00→22:20)
[2016-09-16] MEDS ORDERED: SOD CHL 0.45% WITH 20MEQ KCL 1,000 ML IV SCH (10:15)
[2016-09-16] MEDS: NIFEdipine ER 30 MG TAB PO SCH (10:55)
[2016-09-16] MEDS: METOPROLOL TARTRATE 25 MG TAB PO SCH ×2 (10:56→22:21)
[2016-09-16 12:00] VITALS: BP 149/67
[2016-09-16 16:00] VITALS: BP 146/72
[2016-09-16] MEDS: MORPHINE SULF INJ 2 MG/ML SYRINGE 1ML IV PRN (19:53)
[2016-09-16] MEDS: D5W/SOD CHL 0.45%/KCL 40MEQ 1,000 ML IV SCH (20:30)
[2016-09-16 22:00] VITALS: BP 149/63
[2016-09-17] VITALS (7 sets, daily range): BP systolic 149–173; BP diastolic 63–87
[2016-09-17] MEDS: ALBUTEROL SULF 2.5 MG/0.5ML(0.5%) NEB SOLN NEB SCH ×4 (00:32→18:00)
[2016-09-17] MEDS: D5W/SOD CHL 0.45%/KCL 40MEQ 1,000 ML IV SCH ×2 (01:12→22:57)
[2016-09-17] MEDS: hydrALAZINE HCL 20 MG/ML VL IV PRN (05:12)
[2016-09-17] MEDS: MORPHINE SULF INJ 2 MG/ML SYRINGE 1ML IV PRN (08:52)
[2016-09-17] MEDS: NIFEdipine ER 30 MG TAB PO SCH (09:48)
[2016-09-17] MEDS: METOPROLOL TARTRATE 25 MG TAB PO SCH ×2 (09:51→22:33)
[2016-09-17 10:00] LABS: BUN/Creatinine Ratio 27.8; Potassium 3.2 mmol/L (3.5-5.1)
[2016-09-17] MEDS: SODIUM CHLOR 0.9% PF (SALINE LOCK) 10ML VIAL IV SCH ×2 (10:00→22:00)
[2016-09-17] MEDS ORDERED: D5W 5% 1,000 ML IV SCH (10:45)
[2016-09-17] MEDS: D5W 5% 1,000 ML IV SCH (12:24)
[2016-09-17] MEDS: LORazepam 2MG/ML-1ML VIAL IV PRN (16:55)
[2016-09-17] MEDS: CLONIDINE 0.3 MG/24 HR TD SCH (16:59)
[2016-09-17] MEDS: POTASSIUM CHL 20 Meq TABLET PO SCH (22:32)
[2016-09-18] MEDS: ALBUTEROL SULF 2.5 MG/0.5ML(0.5%) NEB SOLN NEB SCH ×4 (00:44→19:31)
[2016-09-18] MEDS: hydrALAZINE HCL 20 MG/ML VL IV PRN (05:06)
[2016-09-18 05:30] VITALS: BP 161/72
[2016-09-18 08:00] VITALS: BP 149/69
[2016-09-18] MEDS: D5W/SOD CHL 0.45%/KCL 40MEQ 1,000 ML IV SCH ×2 (08:00→22:00)
[2016-09-18 08:54] LABS: BUN/Creatinine Ratio 23.7; Calcium 7.5 mg/dL (8.5-10.1); Potassium 3.8 mmol/L (3.5-5.1)
[2016-09-18] MEDS: POTASSIUM CHL 20 Meq TABLET PO SCH ×2 (11:09→21:38)
[2016-09-18] MEDS: METOPROLOL TARTRATE 25 MG TAB PO SCH ×2 (11:10→21:39)
[2016-09-18] MEDS: NIFEdipine ER 30 MG TAB PO SCH (11:12)
[2016-09-18] MEDS: SODIUM CHLOR 0.9% PF (SALINE LOCK) 10ML VIAL IV SCH ×2 (11:23→21:39)
[2016-09-18] MEDS: D5W 5% 1,000 ML IV SCH ×2 (11:23→18:00)
[2016-09-18 12:00] VITALS: BP 150/64
[2016-09-18 16:00] VITALS: BP 149/59
[2016-09-18 22:00] VITALS: BP 157/82
[2016-09-19] MEDS: ALBUTEROL SULF 2.5 MG/0.5ML(0.5%) NEB SOLN NEB SCH ×3 (01:36→11:51)
[2016-09-19] MEDS: LORazepam 2MG/ML-1ML VIAL IV PRN (01:57)
[2016-09-19 05:00] VITALS: BP 156/81
[2016-09-19] MEDS: D5W 5% 1,000 ML IV SCH (08:35)
[2016-09-19 09:00] VITALS: BP 162/78
[2016-09-19] MEDS: METOPROLOL TARTRATE 25 MG TAB PO SCH (09:13)
[2016-09-19] MEDS: POTASSIUM CHL 20 Meq TABLET PO SCH (09:13)
[2016-09-19] MEDS: NIFEdipine ER 30 MG TAB PO SCH (09:13)
[2016-09-19] MEDS: SODIUM CHLOR 0.9% PF (SALINE LOCK) 10ML VIAL IV SCH (09:14)
[2016-09-19 12:49] VITALS: BP 162/78
[2016-09-19 13:00] VITALS: BP 152/68
== END 2016-09-19 17:17 | disposition home health service (06) | DRG 853 ==
LOC: EDBD 09:43 → ER 09:43 → OVERFLOW 09:44 → ICU WEST 08-23 15:57 → DOU IN ICU 08-23 16:23 → ICU WEST 08-24 16:07 → DOU IN ICU 09-12 22:41 → TELE-CENTR 09-15 00:06
PROVIDERS: ADMIT Internal Medicine; ATTEND Internal Medicine Pulmonary Disease
PROC: 3E0336Z Introduction of Nutritional Substance into Peripheral Vein, Percutaneous Approach (ICD-10-PCS; 2016-08-23)
PROC: 0BH17EZ Insertion of Endotracheal Airway into Trachea, Via Natural or Artificial Opening (ICD-10-PCS; 2016-08-24)
PROC: 0FT40ZZ Resection of Gallbladder, Open Approach (ICD-10-PCS; 2016-08-24)
PROC: 0DQ90ZZ Repair Duodenum, Open Approach (ICD-10-PCS; 2016-08-24)
PROC: 02HV33Z Insertion of Infusion Device into Superior Vena Cava, Percutaneous Approach (ICD-10-PCS; 2016-08-24)
PROC: 5A1955Z Respiratory Ventilation, Greater than 96 Consecutive Hours (ICD-10-PCS; principal; 2016-08-24 09:35)
PROC: 3E0G8GC Introduction of Other Therapeutic Substance into Upper GI, Via Natural or Artificial Opening Endoscopic (ICD-10-PCS; 2016-08-28)
PROC: 0W3P8ZZ Control Bleeding in Gastrointestinal Tract, Via Natural or Artificial Opening Endoscopic (ICD-10-PCS; 2016-08-28)
PROC: 5A1D60Z (ICD-10-PCS; 2016-08-29)
PROC: 30233N1 Transfusion of Nonautologous Red Blood Cells into Peripheral Vein, Percutaneous Approach (ICD-10-PCS; 2016-08-30)
PROC: 02HV33Z Insertion of Infusion Device into Superior Vena Cava, Percutaneous Approach (ICD-10-PCS; 2016-09-01)
PROC: 30233N1 Transfusion of Nonautologous Red Blood Cells into Peripheral Vein, Percutaneous Approach (ICD-10-PCS; 2016-09-04)
PROC: 5A09357 Assistance with Respiratory Ventilation, Less than 24 Consecutive Hours, Continuous Positive Airway Pressure (ICD-10-PCS; 2016-09-10)
DX: A41.9 Sepsis, unspecified organism (principal); K65.1 Peritoneal abscess; J18.9 Pneumonia, unspecified organism; K82.2 Perforation of gallbladder; J96.00 Acute respiratory failure, unspecified whether with hypoxia or hypercapnia; K66.1 Hemoperitoneum; N17.0 Acute kidney failure with tubular necrosis; R65.21 Severe sepsis with septic shock; N39.0 Urinary tract infection, site not specified; J98.11 Atelectasis; E87.0 Hyperosmolality and hypernatremia; K80.00 Calculus of gallbladder with acute cholecystitis without obstruction; K83.3 Fistula of bile duct; J45.909 Unspecified asthma, uncomplicated; E78.5 Hyperlipidemia, unspecified; T85.9XXA Unspecified complication of internal prosthetic device, implant and graft, initial encounter; I12.9 Hypertensive chronic kidney disease with stage 1 through stage 4 chronic kidney disease, or unspecified chronic kidney disease; E87.6 Hypokalemia; D64.9 Anemia, unspecified; K20.9 Esophagitis, unspecified; K29.70 Gastritis, unspecified, without bleeding; K59.00 Constipation, unspecified; B96.20 Unspecified Escherichia coli [E. coli] as the cause of diseases classified elsewhere; B95.2 Enterococcus as the cause of diseases classified elsewhere; E11.22 Type 2 diabetes mellitus with diabetic chronic kidney disease; N18.9 Chronic kidney disease, unspecified; Z82.49 Family history of ischemic heart disease and other diseases of the circulatory system; Z90.710 Acquired absence of both cervix and uterus; Z98.890 Other specified postprocedural states; Z99.2 Dependence on renal dialysis
CPT/HCPCS: 36415; 36569; 36600; 43243; 43255; 71010; 71020; 71275; 74020; 74176; 76604; 76700; 76705; 80048; 80053; 80061; 80074; 80202; 81001; 82040; 82150; 82570; 82805; 82962; 83036; 83605; 83690; 83735; 83880; 84100; 84132; 84300; 84443; 84478; 84484; 85007; 85025; 85027; 85379; 85610; 85730; 86850; 86900; 86901; 86920; 87040; 87070; 87075; 87076; 87077; 87081; 87086; 87186; 87205; 90935; 93005; 93306; 93970; 94002; 94003; 94640; 94660; 96361; 96365; 96366; 96367; 96372; 96375; 97001; 97110; 97530; 99291; C9113; J0330; J0461; J0690; J0696; J0885; J1450; J1642; J1815; J1956; J2001; J2250; J2405; J2543; J2704; J3010; J3480; J3490; J7060; J7131

== ENCOUNTER → 2016-10-06 | Outpatient (CLI) | payer OTHER ==
[~2016-10-06] MED LIST: AML5T PO; ASPI-231 PO; BECL0.07 IN; SIMV-8 PO
[2016-10-06 17:13] LABS: Basophils # (auto) 0 uL; Basophils % (auto) 0.4 % (0.0-2.0); DEFINITIVE VIEW TRANSMISSION; Eosinophils # (auto) 0.2 uL; Eosinophils % (auto) 2.7 % (0.0-7.0); Hematocrit 26.1 % (36.0-46.0); Hemoglobin 11.1 g/dL (12.2-16.2); Lymphocytes # (auto) 2.4 uL; Lymphocytes % (auto) 29.4 % (10.0-50.0); Mean Corpuscular Hemoglobin 41.8 pg (28.0-32.0); Mean Platelet Volume 7.7 fL (7.4-10.4); Monocytes # (auto) 0.8 uL; Monocytes % (auto) 9.6 % (0.0-12.0); Neutrophils # (auto) 4.7 uL; Neutrophils % (auto) 57.9 % (37.0-80.0); Platelet Count (auto) 265 10^3/uL (140-450); Red Cell Distribution Width 16.7 % (11.6-16.0); White Blood Cell 8.2 10^3/uL (4.4-10.8)
[2016-10-06 17:16] LABS: Mean Corpuscular Hgb Conc. 42.2 g/dL (32.0-36.0)
[2016-10-06 17:24] LABS: Albumin 3.7 g/dL (3.4-5.0); BUN/Creatinine Ratio 8.8; Calcium 8.2 mg/dL (8.5-10.1)
[2016-10-06 17:27] LABS: Bilirubin, Total 0.7 mg/dL (0.2-1.0); Total Protein 8.4 g/dL (6.4-8.2)
[2016-10-06 18:42] LABS: Potassium 2.5 mmol/L (3.5-5.1)
== END | disposition home or self-care (01) ==
LOC: LAB 16:23
PROVIDERS: ATTEND Internal Medicine
DX: N18.3 Chronic kidney disease, stage 3 (moderate) (principal); I10 Essential (primary) hypertension
CPT/HCPCS: 36415; 80053; 85025; 85049

== ENCOUNTER → 2016-11-20 | Outpatient (CLI) | payer OTHER ==
[2016-11-20 14:24] LABS: BUN/Creatinine Ratio 11.1; Calcium 9.5 mg/dL (8.5-10.1)
== END | disposition home or self-care (01) ==
LOC: LAB 13:36
PROVIDERS: ATTEND Internal Medicine
DX: E87.6 Hypokalemia (principal)
CPT/HCPCS: 36415; 80048; 83036

== ENCOUNTER → 2017-02-17 | Outpatient (CLI) | payer OTHER ==
[2017-02-17 12:32] LABS: Basophils # (auto) 0 uL; Basophils % (auto) 0.3 % (0.0-2.0); Eosinophils # (auto) 0.3 uL; Eosinophils % (auto) 3.6 % (0.0-7.0); Hematocrit 40.8 % (36.0-46.0); Hemoglobin 13.9 g/dL (12.2-16.2); Lymphocytes # (auto) 3.4 uL; Lymphocytes % (auto) 37.6 % (10.0-50.0); Mean Corpuscular Hemoglobin 29.8 pg (28.0-32.0); Mean Corpuscular Volume 87.7 fL (80.0-100.0); Mean Platelet Volume 8.4 fL (7.4-10.4); Monocytes # (auto) 0.6 uL; Monocytes % (auto) 7.2 % (0.0-12.0); Neutrophils # (auto) 4.6 uL; Neutrophils % (auto) 51.3 % (37.0-80.0); Platelet Count (auto) 262 10^3/uL (140-450)
[2017-02-17 13:09] LABS: Potassium 4.1 mmol/L (3.5-5.1)
[2017-02-17 13:13] LABS: Albumin 3.7 g/dL (3.4-5.0); BUN/Creatinine Ratio 13.6; Calcium 8.7 mg/dL (8.5-10.1)
[2017-02-17 13:23] LABS: Bilirubin, Total 0.3 mg/dL (0.2-1.0); Total Protein 8.5 g/dL (6.4-8.2)
== END | disposition home or self-care (01) ==
LOC: LAB 12:01
PROVIDERS: ATTEND Internal Medicine
DX: D64.9 Anemia, unspecified (principal); E11.9 Type 2 diabetes mellitus without complications; I10 Essential (primary) hypertension
CPT/HCPCS: 36415; 80053; 83036; 85025

== ENCOUNTER → 2017-07-10 | Day surgery (SDC) | payer OTHER ==
[2017-07-07 11:51] LABS: Basophils # (auto) 0.1 uL; Basophils % (auto) 0.7 % (0.0-2.0); Eosinophils # (auto) 0.3 uL; Eosinophils % (auto) 3.3 % (0.0-7.0); Hematocrit 39.7 % (36.0-46.0); Hemoglobin 13.3 g/dL (12.2-16.2); Lymphocytes % (auto) 39.2 % (10.0-50.0); Mean Corpuscular Hemoglobin 30.1 pg (28.0-32.0); Mean Corpuscular Hgb Conc. 33.4 g/dL (32.0-36.0); Mean Corpuscular Volume 90.3 fL (80.0-100.0); Mean Platelet Volume 8.7 fL (6.9-10.8); Monocytes # (auto) 0.8 uL; Neutrophils # (auto) 3.5 uL; Neutrophils % (auto) 46.8 % (37.0-80.0); Nucleated Red Blood Cells % 0.2 %; Platelet Count (auto) 224 10^3/uL (140-450); Red Cell Distribution Width 13.2 % (11.8-14.3); White Blood Cell 7.6 10^3/uL (4.4-10.8)
[2017-07-07 12:11] LABS: INR 0.92 (0.9-1.15); Partial Thromboplastin Time 26.1 sec (22.64-33.71)
[~2017-07-10] VITALS: Ht 160 cm; Wt 71.7 kg
[~2017-07-10] MED LIST changes: +ALBUAER3 IN; -AML5T PO; -BECL0.07 IN; +LIDOCAINE VISCOUS 2% 15ML UD ONE; +METO-169 PO; +SODIUM CHLORIDE LOCK 10 ML ONE; +diphenhdrAMINE HCL 50 MG/1 ML VL ONE; +fentaNYL CITRATE 100 MCG/2 ML VL ONE; +hydrALAZINE HCL 20 MG/ML VL ONE
[2017-07-10] MEDS: fentaNYL CITRATE 100 MCG/2 ML VL ONE ×3 (09:09→09:23)
[2017-07-10] MEDS: MIDAZOLAM HCL 5 MG/ML-1ML VIAL ONE ×3 (09:09→09:23)
[2017-07-10 10:14] VITALS: BP 151/71
== END | disposition home or self-care (01) ==
LOC: GI 08:03
PROVIDERS: ATTEND Internal Medicine Gastroenterology
DX: Z12.11 Encounter for screening for malignant neoplasm of colon (principal); K64.8 Other hemorrhoids; K29.50 Unspecified chronic gastritis without bleeding; K22.8 Other specified diseases of esophagus; J45.909 Unspecified asthma, uncomplicated; Z90.710 Acquired absence of both cervix and uterus; Z90.49 Acquired absence of other specified parts of digestive tract; I10 Essential (primary) hypertension
CPT/HCPCS: 36415; 43239; 45378; 85025; 85610; 85730; J0360; J1200; J2250; J3010; 99152; 99153

== ENCOUNTER → 2017-07-30 | Outpatient (CLI) | payer OTHER ==
[~2017-07-30] MED LIST changes: -LIDOCAINE VISCOUS 2% 15ML UD ONE; -SODIUM CHLORIDE LOCK 10 ML ONE; -diphenhdrAMINE HCL 50 MG/1 ML VL ONE; -fentaNYL CITRATE 100 MCG/2 ML VL ONE; -hydrALAZINE HCL 20 MG/ML VL ONE
[2017-07-30 09:50] LABS: Albumin 3.9 g/dL (3.4-5.0); Alkaline Phosphatase 82 U/L (45-117); Anion Gap 9 (5-15); Aspartate Aminotransferase 18 U/L (15-37); BUN/Creatinine Ratio 15.9; Bilirubin, Total 0.4 mg/dL (0.2-1.0); Blood Urea Nitrogen 17 mg/dL (7-18); Calcium 8.7 mg/dL (8.5-10.1); Carbon Dioxide 27 mmol/L (21-32); Chloride 103 mmol/L (98-107); Cholesterol 289 mg/dL (< 200); GFR African American 66 mL/min; GFR Non-African American 55 mL/min; Glucose 118 mg/dL (74-106); HDL Cholesterol 48 mg/dL (40-59); Potassium 3.9 mmol/L (3.5-5.1); Sodium 139 mmol/L (136-145); Total Protein 8.5 g/dL (6.4-8.2); Triglycerides 422 mg/dL (< 150)
== END | disposition home or self-care (01) ==
LOC: LAB 08:26
PROVIDERS: ATTEND Internal Medicine
DX: E10.9 Type 1 diabetes mellitus without complications (principal); I10 Essential (primary) hypertension
CPT/HCPCS: 36415; 80053; 80061; 83036; 84443

== ENCOUNTER → 2017-11-23 | Outpatient (CLI) | payer OTHER ==
[2017-11-23 09:22] LABS: Potassium 4.5 mmol/L (3.5-5.1)
== END | disposition home or self-care (01) ==
LOC: LAB 08:25
PROVIDERS: ATTEND Internal Medicine
DX: E11.9 Type 2 diabetes mellitus without complications (principal); E78.00 Pure hypercholesterolemia, unspecified
CPT/HCPCS: 36415; 80061; 83036; 84132

== ENCOUNTER → 2018-06-09 | Outpatient (CLI) | payer OTHER ==
[2018-06-09 09:49] LABS: Basophils # (auto) 0.1 uL; Basophils % (auto) 0.8 % (0.0-2.0); Eosinophils # (auto) 0.2 uL; Eosinophils % (auto) 2.4 % (0.0-7.0); Hematocrit 43.9 % (36.0-46.0); Hemoglobin 14.2 g/dL (12.2-16.2); Lymphocytes # (auto) 2.6 uL; Lymphocytes % (auto) 34.5 % (10.0-50.0); Mean Corpuscular Hemoglobin 28.5 pg (28.0-32.0); Mean Corpuscular Hgb Conc. 32.5 g/dL (32.0-36.0); Mean Corpuscular Volume 87.7 fL (80.0-100.0); Monocytes # (auto) 0.6 uL; Monocytes % (auto) 8.2 % (0.0-12.0); Neutrophils % (auto) 54.1 % (37.0-80.0); Nucleated Red Blood Cells % 0.1 %; Platelet Count (auto) 221 10^3/uL (140-450); Red Cell Distribution Width 13.7 % (11.8-14.3); White Blood Cell 7.4 10^3/uL (4.4-10.8)
[2018-06-09 10:03] LABS: Albumin 3.8 g/dL (3.4-5.0); Potassium 4.4 mmol/L (3.5-5.1)
[2018-06-09 10:09] LABS: BUN/Creatinine Ratio 17.9
[2018-06-09 10:10] LABS: Bilirubin, Total 0.4 mg/dL (0.2-1.0); Cholesterol 169.1 mg/dL (< 200); Total Protein 8.2 g/dL (6.4-8.2)
== END | disposition home or self-care (01) ==
LOC: LAB 09:12
PROVIDERS: ATTEND Internal Medicine
DX: I10 Essential (primary) hypertension (principal); E11.9 Type 2 diabetes mellitus without complications
CPT/HCPCS: 36415; 80053; 80061; 82043; 83036; 84439; 84443; 85025

== ENCOUNTER → 2018-11-25 | Outpatient (CLI) | payer OTHER ==
[2018-11-25 08:13] LABS: Basophils # (auto) 0.1 uL; Basophils % (auto) 0.7 % (0.0-2.0); Eosinophils # (auto) 0.4 uL; Eosinophils % (auto) 4.6 % (0.0-7.0); Hematocrit 43.2 % (36.0-46.0); Hemoglobin 14.3 g/dL (12.2-16.2); Lymphocytes # (auto) 2.8 uL; Lymphocytes % (auto) 35.4 % (10.0-50.0); Mean Corpuscular Hemoglobin 29.1 pg (28.0-32.0); Mean Corpuscular Hgb Conc. 33.2 g/dL (32.0-36.0); Mean Corpuscular Volume 87.7 fL (80.0-100.0); Monocytes # (auto) 0.6 uL; Monocytes % (auto) 8.1 % (0.0-12.0); Neutrophils # (auto) 4.1 uL; Neutrophils % (auto) 51.2 % (37.0-80.0); Nucleated Red Blood Cells % 0.1 %; Platelet Count (auto) 224 10^3/uL (140-450); Red Blood Cells 4.92 10^6/uL (4.0-5.20); Red Cell Distribution Width 13.5 % (11.8-14.3); White Blood Cell 7.9 10^3/uL (4.4-10.8)
[2018-11-25 09:01] LABS: Potassium 4.3 mmol/L (3.5-5.1)
[2018-11-25 09:10] LABS: Albumin 3.8 g/dL (3.4-5.0); BUN/Creatinine Ratio 12.9; Bilirubin, Total 0.4 mg/dL (0.2-1.0); Calcium 9.3 mg/dL (8.5-10.1); Total Protein 8.2 g/dL (6.4-8.2); Uric Acid 7.8 mg/dL (2.6-6.0)
== END | disposition home or self-care (01) ==
LOC: LAB 07:46
PROVIDERS: ATTEND Internal Medicine
DX: E11.22 Type 2 diabetes mellitus with diabetic chronic kidney disease (principal); I12.9 Hypertensive chronic kidney disease with stage 1 through stage 4 chronic kidney disease, or unspecified chronic kidney disease; N18.3 Chronic kidney disease, stage 3 (moderate); M71.9 Bursopathy, unspecified; E78.00 Pure hypercholesterolemia, unspecified; K59.00 Constipation, unspecified
CPT/HCPCS: 36415; 80053; 80061; 83036; 84439; 84443; 84550; 85025

== ENCOUNTER → 2019-03-09 | Outpatient (CLI) | payer OTHER ==
[2019-03-09 09:23] LABS: Albumin 3.9 g/dL (3.4-5.0); Potassium 4.1 mmol/L (3.5-5.1)
[2019-03-09 09:30] LABS: Bilirubin, Total 0.4 mg/dL (0.2-1.0); Calcium 9.4 mg/dL (8.5-10.1)
== END | disposition home or self-care (01) ==
LOC: LAB 08:26
PROVIDERS: ATTEND Internal Medicine
DX: E11.9 Type 2 diabetes mellitus without complications (principal); I10 Essential (primary) hypertension; E78.5 Hyperlipidemia, unspecified
CPT/HCPCS: 36415; 80053; 80061; 83036

== ENCOUNTER → 2019-06-27 | Outpatient (CLI) | payer OTHER ==
[2019-06-27 09:00] LABS: Potassium 4.1 mmol/L (3.5-5.1)
[2019-06-27 09:11] LABS: Albumin 3.6 g/dL (3.4-5.0); BUN/Creatinine Ratio 12.7; Bilirubin, Total 0.6 mg/dL (0.2-1.0); Calcium 8.8 mg/dL (8.5-10.1); Total Protein 7.8 g/dL (6.4-8.2)
== END | disposition home or self-care (01) ==
LOC: LAB 07:46
PROVIDERS: ATTEND Internal Medicine
DX: E11.9 Type 2 diabetes mellitus without complications (principal); E78.00 Pure hypercholesterolemia, unspecified
CPT/HCPCS: 36415; 80053; 80061; 83036

== ENCOUNTER → 2019-11-09 | Outpatient (CLI) | payer OTHER ==
[2019-11-09 13:01] LABS: Urine WBC None Seen /hpf (0 - 5)
[2019-11-09 13:05] LABS: Basophils # (auto) 0.1 uL; Eosinophils # (auto) 0.4 uL; Eosinophils % (auto) 5.1 % (0.0-7.0); Hematocrit 46.7 % (36.0-46.0); Hemoglobin 15.1 g/dL (12.2-16.2); Lymphocytes # (auto) 2.7 uL; Lymphocytes % (auto) 34.3 % (10.0-50.0); Mean Corpuscular Hemoglobin 28.8 pg (28.0-32.0); Mean Corpuscular Hgb Conc. 32.4 g/dL (32.0-36.0); Mean Corpuscular Volume 88.8 fL (80.0-100.0); Monocytes # (auto) 0.6 uL; Monocytes % (auto) 7.5 % (0.0-12.0); Neutrophils # (auto) 4.2 uL; Neutrophils % (auto) 52.1 % (37.0-80.0); Platelet Count (auto) 254 10^3/uL (140-450); Red Blood Cells 5.26 10^6/uL (4.0-5.20); Red Cell Distribution Width 13.6 % (11.8-14.3)
[2019-11-09 13:13] LABS: Urine Bacteria NONE SEEN /hpf (None Seen); Urine Blood Negative /uL (Negative); Urine Specific Gravity 1.003 (1.001-1.035)
[2019-11-09 13:49] LABS: Albumin 4.1 g/dL (3.4-5.0); Calcium 9.3 mg/dL (8.5-10.1); Potassium 3.8 mmol/L (3.5-5.1)
[2019-11-09 13:53] LABS: BUN/Creatinine Ratio 9.6; Bilirubin, Total 0.6 mg/dL (0.2-1.0); Total Protein 8.4 g/dL (6.4-8.2)
== END | disposition home or self-care (01) ==
LOC: LAB 12:41
PROVIDERS: ATTEND Internal Medicine
DX: E11.22 Type 2 diabetes mellitus with diabetic chronic kidney disease (principal); I12.9 Hypertensive chronic kidney disease with stage 1 through stage 4 chronic kidney disease, or unspecified chronic kidney disease; N18.9 Chronic kidney disease, unspecified
CPT/HCPCS: 36415; 80053; 80061; 81001; 82043; 83036; 84439; 84443; 85025; 85652

== ENCOUNTER → 2020-04-13 | Outpatient (CLI) | payer OTHER ==
[2020-04-13 09:16] LABS: Albumin 3.8 g/dL (3.4-5.0)
[2020-04-13 09:23] LABS: BUN/Creatinine Ratio 10.6; Bilirubin, Total 0.7 mg/dL (0.2-1.0); Total Protein 7.6 g/dL (6.4-8.2)
== END | disposition home or self-care (01) ==
LOC: LAB 08:11
PROVIDERS: ATTEND Internal Medicine
DX: E11.22 Type 2 diabetes mellitus with diabetic chronic kidney disease (principal); E78.5 Hyperlipidemia, unspecified
CPT/HCPCS: 36415; 80053; 80061; 83036

== ENCOUNTER → 2020-08-13 | Outpatient (CLI) | payer OTHER ==
[2020-08-13 15:39] LABS: Basophils # (auto) 0.1 10 ^3/uL (0-0.2); Basophils % (auto) 0.6 % (0.0-2.0); Eosinophils # (auto) 0.5 10 ^3/uL (0-0.8); Eosinophils % (auto) 5.2 % (0.0-7.0); Hematocrit 43.6 % (36.0-46.0); Hemoglobin 14.4 g/dL (12.2-16.2); Lymphocytes # (auto) 2.8 10 ^3/uL (0.4-5.4); Lymphocytes % (auto) 28.4 % (10.0-50.0); Mean Corpuscular Hemoglobin 29.4 pg (28.0-32.0); Mean Corpuscular Volume 89.2 fL (80.0-100.0); Monocytes % (auto) 10.1 % (0.0-12.0); Neutrophils # (auto) 5.5 10 ^3/uL (1.6-8.6); Neutrophils % (auto) 55.7 % (37.0-80.0); Platelet Count (auto) 230 10^3/uL (140-450); Red Blood Cells 4.88 10^6/uL (4.0-5.20); Red Cell Distribution Width 13.1 % (11.8-14.3)
[2020-08-13 16:24] LABS: Albumin 3.6 g/dL (3.4-5.0); Calcium 8.2 mg/dL (8.5-10.1); Potassium 3.8 mmol/L (3.5-5.1)
[2020-08-13 16:28] LABS: BUN/Creatinine Ratio 15.2; Bilirubin, Total 0.4 mg/dL (0.2-1.0); Total Protein 7.6 g/dL (6.4-8.2); Uric Acid 7.9 mg/dL (2.6-6.0)
== END | disposition home or self-care (01) ==
LOC: LAB 15:07
PROVIDERS: ATTEND Internal Medicine
DX: E11.22 Type 2 diabetes mellitus with diabetic chronic kidney disease (principal); I12.9 Hypertensive chronic kidney disease with stage 1 through stage 4 chronic kidney disease, or unspecified chronic kidney disease; N18.30 Chronic kidney disease, stage 3 unspecified; J45.909 Unspecified asthma, uncomplicated
CPT/HCPCS: 36415; 80053; 83036; 83970; 84550; 85025

== ENCOUNTER → 2020-11-13 | Outpatient (CLI) | payer OTHER ==
[2020-11-13 12:05] LABS: Basophils # (auto) 0 10 ^3/uL (0-0.2); Basophils % (auto) 0.5 % (0.0-2.0); Eosinophils # (auto) 0.3 10 ^3/uL (0-0.8); Eosinophils % (auto) 3.8 % (0.0-7.0); Hematocrit 43.2 % (36.0-46.0); Hemoglobin 14.6 g/dL (12.2-16.2); Lymphocytes # (auto) 2.6 10 ^3/uL (0.4-5.4); Mean Corpuscular Hemoglobin 30.5 pg (28.0-32.0); Mean Corpuscular Hgb Conc. 33.9 g/dL (32.0-36.0); Mean Corpuscular Volume 89.8 fL (80.0-100.0); Monocytes # (auto) 0.7 10 ^3/uL (0-1.3); Monocytes % (auto) 7.5 % (0.0-12.0); Neutrophils # (auto) 5.1 10 ^3/uL (1.6-8.6); Neutrophils % (auto) 58.2 % (37.0-80.0); Platelet Count (auto) 224 10^3/uL (140-450); Red Blood Cells 4.81 10^6/uL (4.0-5.20); Red Cell Distribution Width 13.6 % (11.8-14.3); White Blood Cell 8.7 10^3/uL (4.4-10.8)
[2020-11-13 12:35] LABS: Potassium 4.3 mmol/L (3.5-5.1)
[2020-11-13 12:41] LABS: Bilirubin, Total 0.8 mg/dL (0.2-1.0); Calcium 9.3 mg/dL (8.5-10.1); Total Protein 8.4 g/dL (6.4-8.2); Uric Acid 7.6 mg/dL (2.6-6.0)
== END | disposition home or self-care (01) ==
LOC: LAB 11:17
PROVIDERS: ATTEND Internal Medicine
DX: I12.9 Hypertensive chronic kidney disease with stage 1 through stage 4 chronic kidney disease, or unspecified chronic kidney disease (principal); E11.22 Type 2 diabetes mellitus with diabetic chronic kidney disease; N18.30 Chronic kidney disease, stage 3 unspecified
CPT/HCPCS: 36415; 80053; 83036; 84550; 85025

== ENCOUNTER → 2020-11-22 | Outpatient (CLI) | payer OTHER ==
[2020-11-22 11:24] LABS: Urine Bacteria NONE SEEN /hpf (None Seen); Urine Blood TRACE /uL (Negative); Urine Specific Gravity 1.003 (1.001-1.035); Urine WBC <1 /hpf (0 - 5)
[2020-11-22 11:43] LABS: Alanine Aminotransferase 38 U/L (13-56); Aspartate Aminotransferase 24 U/L (15-37); Creatine Kinase IFCC 96 U/L (26-192)
[2020-11-22 11:57] LABS: % Iron Saturation 30.3 % (15-50)
== END | disposition home or self-care (01) ==
LOC: LAB 10:33
PROVIDERS: ATTEND Internal Medicine
DX: E11.22 Type 2 diabetes mellitus with diabetic chronic kidney disease (principal); N18.30 Chronic kidney disease, stage 3 unspecified; R79.89 Other specified abnormal findings of blood chemistry
CPT/HCPCS: 36415; 81001; 82390; 82550; 83540; 83550; 84439; 84443; 84450; 84460

== ENCOUNTER → 2021-10-10 | Day surgery (SDC) | payer OTHER ==
[2021-10-08 10:25] LABS: Basophils # (auto) 0.1 10 ^3/uL (0-0.2); Basophils % (auto) 0.8 % (0.0-2.0); Eosinophils # (auto) 0.4 10 ^3/uL (0-0.8); Eosinophils % (auto) 4.7 % (0.0-7.0); Hematocrit 42.3 % (36.0-46.0); Hemoglobin 14.2 g/dL (12.2-16.2); Lymphocytes # (auto) 2.8 10 ^3/uL (0.4-5.4); Lymphocytes % (auto) 34.4 % (10.0-50.0); Mean Corpuscular Hemoglobin 29.8 pg (28.0-32.0); Mean Corpuscular Hgb Conc. 33.6 g/dL (32.0-36.0); Mean Corpuscular Volume 88.7 fL (80.0-100.0); Monocytes # (auto) 0.7 10 ^3/uL (0-1.3); Monocytes % (auto) 8.5 % (0.0-12.0); Neutrophils # (auto) 4.2 10 ^3/uL (1.6-8.6); Neutrophils % (auto) 51.6 % (37.0-80.0); Nucleated Red Blood Cells % 0.1 %; Red Blood Cells 4.77 10^6/uL (4.0-5.20); Red Cell Distribution Width 13.7 % (11.8-14.3); White Blood Cell 8.1 10^3/uL (4.4-10.8)
[2021-10-08 11:35] LABS: Potassium 4.1 mmol/L (3.5-5.1)
[2021-10-08 11:47] LABS: Albumin 4.1 g/dL (3.4-5.0); BUN/Creatinine Ratio 17.6; Bilirubin, Total 0.8 mg/dL (0.2-1.0); Calcium 9.5 mg/dL (8.5-10.1); Total Protein 8.2 g/dL (6.4-8.2)
[~2021-10-10] MED LIST changes: +ALBU1.257 IN; -ASPI-231 PO; +ASPI1TAB20 PO; +ATOR20TA PO; +LIDOCAINE VISCOUS 2% 15ML UD ONE; -METO-169 PO; +MIDAZOLAM HCL 5 MG/ML-1ML VIAL ONE; -SIMV-8 PO; +SPIR25TA8 PO; +diphenhdrAMINE HCL 50 MG/1 ML VL ONE; +fentaNYL CITRATE 100 MCG/2 ML VL ONE
[2021-10-10 11:55] VITALS: BP 130/60
== END | disposition home or self-care (01) ==
LOC: GI 09:17
PROVIDERS: ATTEND Internal Medicine Gastroenterology
DX: R12 Heartburn (principal); K22.70 Barrett's esophagus without dysplasia; K21.00 Gastro-esophageal reflux disease with esophagitis, without bleeding; K29.50 Unspecified chronic gastritis without bleeding; Z90.710 Acquired absence of both cervix and uterus; Z82.49 Family history of ischemic heart disease and other diseases of the circulatory system; I10 Essential (primary) hypertension; E78.5 Hyperlipidemia, unspecified; J45.909 Unspecified asthma, uncomplicated; Z98.890 Other specified postprocedural states; Z79.899 Other long term (current) drug therapy; Z20.822 Contact with and (suspected) exposure to COVID-19
CPT/HCPCS: 36415; 43239; 80053; 85025; 88305; 88312; 88313; 88342; J1200; J2250; J3010; U0003; 99152

== ENCOUNTER → 2021-12-04 | Outpatient (CLI) | payer OTHER ==
[~2021-12-04] VITALS: Ht 160 cm; Wt 72.6 kg
[~2021-12-04] MED LIST changes: -LIDOCAINE VISCOUS 2% 15ML UD ONE; -MIDAZOLAM HCL 5 MG/ML-1ML VIAL ONE; -diphenhdrAMINE HCL 50 MG/1 ML VL ONE; -fentaNYL CITRATE 100 MCG/2 ML VL ONE
== END | disposition home or self-care (01) ==
LOC: Rad HDHVI 12:25
PROVIDERS: ATTEND Internal Medicine Cardiovascular Disease
DX: E11.8 Type 2 diabetes mellitus with unspecified complications (principal)
CPT/HCPCS: 78452; 93017; 93306; 96374; A9500

== ENCOUNTER → 2022-03-26 | Outpatient (CLI) | payer OTHER ==
[2022-03-26 10:56] LABS: Basophils # (auto) 0 10 ^3/uL (0-0.2); Basophils % (auto) 0.5 % (0.0-2.0); Eosinophils # (auto) 0.3 10 ^3/uL (0-0.8); Hematocrit 40.5 % (36.0-46.0); Hemoglobin 13.2 g/dL (12.2-16.2); Lymphocytes # (auto) 2.6 10 ^3/uL (0.4-5.4); Lymphocytes % (auto) 31.6 % (10.0-50.0); Mean Corpuscular Hemoglobin 28.7 pg (28.0-32.0); Mean Corpuscular Hgb Conc. 32.7 g/dL (32.0-36.0); Monocytes # (auto) 0.7 10 ^3/uL (0-1.3); Monocytes % (auto) 8.9 % (0.0-12.0); Neutrophils # (auto) 4.5 10 ^3/uL (1.6-8.6); Red Blood Cells 4.61 10^6/uL (4.0-5.20); Red Cell Distribution Width 13.1 % (11.8-14.3); White Blood Cell 8.1 10^3/uL (4.4-10.8)
[2022-03-26 11:32] LABS: Calcium 8.8 mg/dL (8.5-10.1)
[2022-03-26 11:38] LABS: Albumin 3.7 g/dL (3.4-5.0); Bilirubin, Total 0.4 mg/dL (0.2-1.0); Total Protein 7.5 g/dL (6.4-8.2)
== END | disposition home or self-care (01) ==
LOC: LAB 10:34
PROVIDERS: ATTEND Internal Medicine
DX: E11.22 Type 2 diabetes mellitus with diabetic chronic kidney disease (principal); I12.9 Hypertensive chronic kidney disease with stage 1 through stage 4 chronic kidney disease, or unspecified chronic kidney disease; N18.31 Chronic kidney disease, stage 3a
CPT/HCPCS: 36415; 80053; 83036; 85025; 85652

== ENCOUNTER → 2022-07-15 | Outpatient (CLI) | payer OTHER ==
[2022-07-15 14:08] LABS: Basophils # (auto) 0 10 ^3/uL (0-0.2); Basophils % (auto) 0.4 % (0.0-2.0); Eosinophils # (auto) 0.4 10 ^3/uL (0-0.8); Eosinophils % (auto) 4.2 % (0.0-7.0); Hematocrit 42.2 % (36.0-46.0); Hemoglobin 14.3 g/dL (12.2-16.2); Lymphocytes # (auto) 3.2 10 ^3/uL (0.4-5.4); Lymphocytes % (auto) 36.4 % (10.0-50.0); Mean Corpuscular Hemoglobin 29.6 pg (28.0-32.0); Mean Corpuscular Hgb Conc. 33.8 g/dL (32.0-36.0); Mean Corpuscular Volume 87.5 fL (80.0-100.0); Monocytes # (auto) 0.7 10 ^3/uL (0-1.3); Monocytes % (auto) 8.2 % (0.0-12.0); Neutrophils # (auto) 4.5 10 ^3/uL (1.6-8.6); Neutrophils % (auto) 50.8 % (37.0-80.0); Nucleated Red Blood Cells % 0.1 %; Red Blood Cells 4.82 10^6/uL (4.0-5.20); Red Cell Distribution Width 13.6 % (11.8-14.3); White Blood Cell 8.9 10^3/uL (4.4-10.8)
[2022-07-15 14:25] LABS: Urine Bacteria NONE SEEN /hpf (None Seen); Urine Blood TRACE /uL (Negative); Urine Specific Gravity 1.005 (1.001-1.035); Urine WBC <1 /hpf (0 - 5)
[2022-07-15 14:28] LABS: Calcium 9.2 mg/dL (8.5-10.1)
[2022-07-15 14:31] LABS: Creatinine, Urine 38 mg/dL (30.0-125.0)
[2022-07-15 14:34] LABS: Total Protein 8.1 g/dL (6.4-8.2)
[2022-07-15 14:43] LABS: Micro Albumin < 5.00 mg/L (0-30.0)
[2022-07-15 14:48] LABS: Free T4 (Free Thyroxine) 1.16 ng/dL (0.89-1.76)
== END | disposition home or self-care (01) ==
LOC: LAB 13:43
PROVIDERS: ATTEND Internal Medicine
DX: E11.9 Type 2 diabetes mellitus without complications (principal); I10 Essential (primary) hypertension
CPT/HCPCS: 36415; 80053; 80061; 81001; 82043; 82570; 82607; 83036; 84439; 84443; 85025; 85652

== ENCOUNTER → 2023-01-27 | Outpatient (CLI) | payer OTHER, MEDICAID ==
[2023-01-27 13:02] LABS: Basophils # (auto) 0.1 10 ^3/uL (0-0.2); Basophils % (auto) 0.8 % (0.0-2.0); Eosinophils # (auto) 0.5 10 ^3/uL (0-0.8); Eosinophils % (auto) 4.7 % (0.0-7.0); Hematocrit 42.2 % (36.0-46.0); Lymphocytes # (auto) 3.2 10 ^3/uL (0.4-5.4); Lymphocytes % (auto) 32.8 % (10.0-50.0); Mean Corpuscular Hgb Conc. 33.1 g/dL (32.0-36.0); Mean Corpuscular Volume 87.6 fL (80.0-100.0); Monocytes # (auto) 0.9 10 ^3/uL (0-1.3); Monocytes % (auto) 9.4 % (0.0-12.0); Neutrophils # (auto) 5.1 10 ^3/uL (1.6-8.6); Neutrophils % (auto) 52.3 % (37.0-80.0); Red Blood Cells 4.82 10^6/uL (4.0-5.20); White Blood Cell 9.7 10^3/uL (4.4-10.8)
[2023-01-27 13:47] LABS: Albumin 4.1 g/dL (3.4-5.0); Calcium 8.9 mg/dL (8.5-10.1); Potassium 4.1 mmol/L (3.5-5.1)
[2023-01-27 13:51] LABS: BUN/Creatinine Ratio 16.7 (10.0-20.0); Bilirubin, Total 0.4 mg/dL (0.2-1.0); Total Protein 7.9 g/dL (6.4-8.2)
== END | disposition home or self-care (01) ==
LOC: LAB 12:44
PROVIDERS: ATTEND Internal Medicine
DX: I12.9 Hypertensive chronic kidney disease with stage 1 through stage 4 chronic kidney disease, or unspecified chronic kidney disease (principal); E11.22 Type 2 diabetes mellitus with diabetic chronic kidney disease; N18.30 Chronic kidney disease, stage 3 unspecified
CPT/HCPCS: 36415; 80053; 83036; 85025

== ENCOUNTER → 2023-07-09 | Outpatient (CLI) | payer OTHER, MEDICAID ==
[~2023-07-09] MED LIST changes: -ALBU1.257 IN; +ALBU1.258 IN
[2023-07-09 11:36] LABS: Basophils # (auto) 0.1 10 ^3/uL (0-0.2); Basophils % (auto) 0.6 % (0.0-2.0); Eosinophils # (auto) 0.4 10 ^3/uL (0-0.8); Eosinophils % (auto) 4.6 % (0.0-7.0); Hematocrit 44.5 % (36.0-46.0); Hemoglobin 14.7 g/dL (12.2-16.2); Lymphocytes # (auto) 3.1 10 ^3/uL (0.4-5.4); Lymphocytes % (auto) 35.7 % (10.0-50.0); Mean Corpuscular Volume 87.9 fL (80.0-100.0); Monocytes # (auto) 0.7 10 ^3/uL (0-1.3); Monocytes % (auto) 8.2 % (0.0-12.0); Neutrophils # (auto) 4.4 10 ^3/uL (1.6-8.6); Neutrophils % (auto) 50.9 % (37.0-80.0); Nucleated Red Blood Cells % 0.1 %; Red Blood Cells 5.06 10^6/uL (4.0-5.20); Red Cell Distribution Width 13.6 % (11.8-14.3); White Blood Cell 8.6 10^3/uL (4.4-10.8)
[2023-07-09 11:47] LABS: Urine Bacteria NONE SEEN /hpf (None Seen); Urine Blood 1+ /uL (Negative); Urine Clarity Clear (Clear); Urine Protein, UAD Negative (Negative); Urine Specific Gravity 1.014 (1.001-1.035); Urine Urobilinogen Normal (Negative); Urine WBC <1 /hpf (0 - 5)
[2023-07-09 11:53] LABS: Urine Color Straw (Yellow)
[2023-07-09 12:11] LABS: Creatinine, Urine 70.42 mg/dL (30.0-125.0)
[2023-07-09 12:12] LABS: Alanine Aminotransferase 16 U/L (7-40); Albumin 4.8 g/dL (3.2-4.8); Alkaline Phosphatase 79 U/L (46-116); Anion Gap 7 (5-15); Aspartate Aminotransferase 17 U/L (13-40); BUN/Creatinine Ratio 14.3 (10.0-20.0); Blood Urea Nitrogen 16 mg/dL (9-23); Calcium 9.8 mg/dL (8.5-10.1); Carbon Dioxide 30 mmol/L (20-30); Chloride 103 mmol/L (98-107); Glucose 109 mg/dL (74-106); LDL Cholesterol 103 mg/dL (< 100); Potassium 4.2 mmol/L (3.5-5.1); Sodium 140 mmol/L (136-145); Triglycerides 179 mg/dL (< 150)
[2023-07-09 12:13] LABS: Micro Albumin < 3.0 mg/L (<30.0)
[2023-07-09 12:13] LABS: Cholesterol 174 mg/dL (< 200); HDL Cholesterol 52 mg/dL (40-59); Total Protein 7.9 g/dL (5.7-8.2)
[2023-07-09 12:15] LABS: Free T4 (Free Thyroxine) 1.07 ng/dL (0.89-1.76)
[2023-07-09 12:25] LABS: Erythrocyte Sedimentation Rate 23 mm/hr (0-20)
== END | disposition home or self-care (01) ==
LOC: LAB 11:08
PROVIDERS: ATTEND Internal Medicine
DX: I12.9 Hypertensive chronic kidney disease with stage 1 through stage 4 chronic kidney disease, or unspecified chronic kidney disease (principal); E11.22 Type 2 diabetes mellitus with diabetic chronic kidney disease; N18.30 Chronic kidney disease, stage 3 unspecified
CPT/HCPCS: 36415; 80053; 80061; 81001; 82043; 82570; 82607; 83036; 84439; 84443; 85025; 85652

== ENCOUNTER → 2024-04-04 | Outpatient (CLI) | payer OTHER, MEDICAID ==
[2024-04-04 10:30] LABS: Basophils # (auto) 0 10 ^3/uL (0-0.2); Basophils % (auto) 0.5 % (0.0-2.0); Eosinophils # (auto) 0.4 10 ^3/uL (0-0.8); Hematocrit 42.9 % (36.0-46.0); Hemoglobin 14.4 g/dL (12.2-16.2); Lymphocytes # (auto) 3.1 10 ^3/uL (0.4-5.4); Lymphocytes % (auto) 34.3 % (10.0-50.0); Mean Corpuscular Hgb Conc. 33.6 g/dL (32.0-36.0); Mean Corpuscular Volume 89.1 fL (80.0-100.0); Monocytes # (auto) 0.8 10 ^3/uL (0-1.3); Monocytes % (auto) 9.2 % (0.0-12.0); Neutrophils # (auto) 4.7 10 ^3/uL (1.6-8.6); Red Blood Cells 4.81 10^6/uL (4.0-5.20); Red Cell Distribution Width 13.7 % (11.8-14.3)
[2024-04-04 10:57] LABS: Alanine Aminotransferase 28 U/L (7-40); Albumin 4.7 g/dL (3.2-4.8); Alkaline Phosphatase 78 U/L (46-116); Anion Gap 7 (5-15); BUN/Creatinine Ratio 11.1 (10.0-20.0); Blood Urea Nitrogen 13 mg/dL (9-23); Calcium 9.9 mg/dL (8.7-10.4); Carbon Dioxide 28 mmol/L (20-30); Chloride 104 mmol/L (98-107); Glucose 116 mg/dL (74-106); LDL Cholesterol 90 mg/dL (< 100); Potassium 4.3 mmol/L (3.5-5.1); Sodium 139 mmol/L (136-145); Triglycerides 163 mg/dL (< 150)
[2024-04-04 10:58] LABS: Aspartate Aminotransferase 11 U/L (13-40); Cholesterol 156 mg/dL (< 200); Creatinine, Urine 98.57 mg/dL (30.0-125.0); HDL Cholesterol 49 mg/dL (40-59); Total Protein 7.3 g/dL (5.7-8.2); Urine Bacteria FEW /hpf (None Seen); Urine Blood TRACE /uL (Negative); Urine Clarity Clear (Clear); Urine Color Light-Yellow (Yellow); Urine Protein, UAD Negative (Negative); Urine Specific Gravity 1.012 (1.001-1.035); Urine Urobilinogen Normal (Negative); Urine WBC <1 /hpf (0 - 5)
[2024-04-04 11:00] LABS: Micro Albumin < 3.0 mg/L (<30.0)
[2024-04-04 11:06] LABS: Free T4 (Free Thyroxine) 1.18 ng/dL (0.89-1.76)
[2024-04-04 11:35] LABS: Erythrocyte Sedimentation Rate 19 mm/hr (0-20)
[2024-04-04 12:33] LABS: Uric Acid 8.9 mg/dL (3.1-7.8)
== END | disposition home or self-care (01) ==
LOC: LAB 10:04
PROVIDERS: ATTEND Internal Medicine
DX: I12.9 Hypertensive chronic kidney disease with stage 1 through stage 4 chronic kidney disease, or unspecified chronic kidney disease (principal); E11.22 Type 2 diabetes mellitus with diabetic chronic kidney disease; N18.30 Chronic kidney disease, stage 3 unspecified; J45.909 Unspecified asthma, uncomplicated
CPT/HCPCS: 36415; 80053; 80061; 81001; 82043; 82570; 82607; 83970; 84439; 84443; 84550; 85025; 85652